=== PATIENT | male | born 1940 | race Caucasian/White ===

== ENCOUNTER 2016-12-22 14:19 | Observation (INO) | payer MEDICARE ==
[~2016-12-22] VITALS: Ht 172.7 cm; Wt 68.5 kg
[~2016-12-22 14:19] MED LIST: ALPR.25 PO; BUME1TAB28 PO; CALC667T PO; GABA600T PO; LIDOCAINE CREAM TOP; LOTE20TA PO; METO25TA3 PO; NITR0.4S SL; SIMV80TA PO; SPIRCAP INH
[2016-12-22 14:23] VITALS: BP 136/87; PULSE 86; RESP 16; TEMP 99.1; O2SAT 96
[2016-12-22] MEDS ORDERED: SODIUM CHLORIDE 0.9% FLUSH 5 ML FLUSH IV FLUSH PRN (15:00)
[2016-12-22 15:21] LABS: AUTOMATED NEUTROPHIL # 5.7 TH/MM3 (1.8-7.7); BASOPHIL # 0.2 TH/MM3 (0-0.2); BASOPHIL % 3.3 % (0.0-2.0); EOSINOPHIL # 0.1 TH/MM3 (0-0.4); EOSINOPHIL % 2.1 % (0.0-4.0); HEMATOCRIT 32.5 % (39.0-51.0); LYMPH % 6.3 % (9.0-44.0); LYMPHOCYTE # 0.4 TH/MM3 (1.0-4.8); MEAN CORPUSCULAR HEMOGLOBIN 28.9 PG (27.0-34.0); MEAN CORPUSCULAR HGB CONC 31.8 % (32.0-36.0); MONO % 8.9 % (0.0-8.0); NEUT % 79.4 % (16.0-70.0); PLATELET COUNT 169 TH/MM3 (150-450); RED BLOOD COUNT 3.57 MIL/MM3 (4.50-5.90)
[2016-12-22 15:32] LABS: CHLORIDE 107 MEQ/L (98-107); POTASSIUM 4.9 MEQ/L (3.5-5.1); SODIUM (NA) 142 MEQ/L (136-145)
[2016-12-22 15:36] LABS: ANION GAP 11 MEQ/L (5-15); APTT (PATIENT) 30.7 SEC (24.3-30.1); BICARBONATE 24.5 MEQ/L (21.0-32.0); BLOOD UREA NITROGEN 64 MG/DL (7-18); INTERNATIONAL NORMALIZED RATIO 1.2 RATIO; PROTHROMBIN TIME - PATIENT 12.8 SEC (9.8-11.6)
[2016-12-22] MEDS ORDERED: DIAZ10TA PO (15:36)
[2016-12-22] MEDS ORDERED: BUME2TAB PO ×2 (15:36)
[2016-12-22] MEDS ORDERED: TERA1CAP3 PO (15:36)
[2016-12-22] MEDS ORDERED: NEPHTAB3 PO (15:36)
[2016-12-22] MEDS ORDERED: PILO5TAB3 PO (15:36)
[2016-12-22] MEDS ORDERED: CLOP75TA PO (15:36)
[2016-12-22] MEDS ORDERED: AMLO5TAB2 PO (15:36)
[2016-12-22] MEDS ORDERED: OXYC1TAB63 PO (15:36)
[2016-12-22] MEDS ORDERED: ASPI81TA11 PO (15:36)
[2016-12-22 15:38] VITALS: O2SAT 96
[2016-12-22 15:39] LABS: ALT (GPT) 14 U/L (12-78); AST (GOT) 13 U/L (15-37); GLOMERULAR FILTRATION RATE 6 ML/MIN (>89)
[2016-12-22 15:40] LABS: HEMO FLAGS DIFF FINAL; TOTAL BILIRUBIN ADULT 0.5 MG/DL (0.2-1.0)
[2016-12-22 15:41] LABS: ALKALINE PHOSPHATASE 72 U/L (45-117)
--- NOTE | 2016-12-22 15:48 | PD ---
HPI Chief Complaint: General Weakness Time Seen by Provider: 14:43 Travel History International Travel<30 days: No Contact w/Intl Traveler<30days: No Traveled to known affect area: No History of Present Illness HPI This is a 76-year-old male who has a history of end-stage renal disease who presents to the emergency department with altered mental status. The patient has been increasingly confused over the past 3 months. His reports that he 's been saying strange things, he's been more paranoid and he is been falling frequently. The symptoms of been constant, worsening over the past 3 months but acutely worse in the past week. The patient has fallen multiple times. His reports that he's been cursing and screaming at her and she is concerned he is going to get physically aggressive. He's been yelling at the TV and saying that his mother's and it and he's been telling her to avoid the laundry because there are chemicals in it. She says he didn't get any of his medications today except for a half oxycodone. He didn't go to dialysis today because he refused it and he's been refusing all his other medications at home. She is having a very difficult time managing him at home. PFSH Past Medical History Hx Anticoagulant Therapy: Yes (PLAVIX AND BABY ASA) Anemia: Yes Arthritis: Yes Asthma: No Autoimmune Disease: No Anxiety: No Depression: No Heart Rhythm Problems: No Cancer: Yes (ca lung 2013) Cardiac Catheterization: Yes Cardiovascular Problems: Yes (AL, OPEN HEART SX. AND STENTS, HTN) High Cholesterol: Yes Chemotherapy: No Chest Pain: Yes Congestive Heart Failure: No COPD: No Cerebrovascular Accident: Yes (1992) Coronary Artery Disease: Yes Diabetes: No Dialysis: Yes (vas cath rt chest) Endocrine: No GERD: No Glaucoma: No Genitourinary: Yes Hepatitis: No Hiatal Hernia: Yes Hypertension: Yes Immune Disorder: No Inguinal Hernia: Yes Implanted Vascular Access Dvce: Yes Kidney Stones: No Musculoskeletal: Yes (ARTHRITIS) Neurologic: Yes (STROKE 1994, , neuropathy feet ) Psychiatric: Yes (ANXIETY) Reproductive: No Respiratory: Yes (POSS LUNG CA, copd) Migraines: No Radiation Therapy: No Renal Failure: Yes Seizures: No Sickle Cell Disease: No Sleep Apnea: No Thyroid Disease: No Ulcer: No Tetanus Vaccination: Unknown Influenza Vaccination: Yes Past Surgical History Abdominal Surgery: No AICD: No Arteriovenous Shunt: No Body Medical Devices: LEFT FORARM FISTULA Cardiac Surgery: Yes Coronary Artery Bypass Graft: Yes Ear Surgery: No Endocrine Surgery: No Eye Surgery: Yes (cataracts bilat) Genitourinary Surgery: Yes (BILAT INGUINAL HERNIA) Gynecologic Surgery: No Insulin Pump: No Joint Replacement: No Neurologic Surgery: No Oral Surgery: No Pacemaker: No Thoracic Surgery: Yes (CABG, STERNIUM REMOVED, patial lobectomy) Other Surgery: Yes Social History Alcohol Use: No Tobacco Use: No Substance Use: No Allergies-Medications (Allergen,Severity, Reaction): Coded Allergies: bee venom protein (honey bee) (Unverified Allergy, Intermediate, RASH, SWELLING, 12/22/16) *MDRO Multi-Drug Resistant Organism (Verified Allergy, Unknown, 12/22/16) MRSA 03/2012 Reported Meds & Prescriptions Reported Meds & Active Scripts Active Reported Aspirin EC (Aspirin) 81 Mg Tabdr 81 Mg PO DAILY Diazepam 10 Mg Tab 10 Mg PO HS Amlodipine (Amlodipine Besylate) 5 Mg Tab 5 Mg PO DAILY Terazosin (Terazosin HCl) 1 Mg Cap 1 Mg PO HS Bumetanide 2 Mg Tab 2 Mg PO HS Bumetanide 2 Mg Tab 4 Mg PO DAILY Nephro-Lavern (B-Complex W/ C & Folic Acid) 1 Tab 1 Tab PO DAILY Clopidogrel (Clopidogrel Bisulfate) 75 Mg Tab 75 Mg PO DAILY Pilocarpine 5 Mg Tab 5 Mg PO Q8HR Oxycodone-Acetaminophen 5-325 mg Tab 1-2 Tab PO Q4H PRN Gabapentin 600 Mg Tab 600 Mg PO BID Simvastatin 80 Mg Tab 80 Mg PO DAILY Review of Systems ROS Limitations: Poor Historian Physical Exam Narrative GENERAL: Somnolent but awakens to answer questions. SKIN: Dry with skin tenting. HEAD: Atraumatic. Normocephalic. EYES: Pupils equal and round. No injection or drainage. ENT: Dry mucous membranes. NECK: Trachea midline. CARDIOVASCULAR: Regular rate and rhythm. No murmur appreciated. RESPIRATORY: Clear to auscultation. Breath sounds equal bilaterally. GASTROINTESTINAL: Abdomen soft, non-tender, nondistended. MUSCULOSKELETAL: No obvious deformities. NEUROLOGICAL: Oriented to person place and time but definitely confused, making inappropriate comments and answering some questions inappropriately. No obvious cranial nerve deficits. No dysarthria or aphasia. No upper or lower extremity drift. Left upper extremity ataxia. Intermittent resting tremor of the bilateral upper extremities. PSYCHIATRIC: Poor insight and judgment. Data Data Last Documented VS Vital Signs Date Time Temp Pulse Resp B/P (MAP) Pulse Ox O2 Delivery O2 Flow Rate FiO2 12/22/16 15:38 96 Room Air 12/22/16 14:23 99.1 86 16 136/87 (103) Orders Orders Electrocardiogram (12/22/16 14:57) Ammonia (12/22/16 14:57) Complete Blood Count With Diff (12/22/16 14:57) Comprehensive Metabolic Panel (12/22/16 14:57) Prothrombin Time / Inr (Pt) (12/22/16 14:57) Act Partial Throm Time (Ptt) (12/22/16 14:57) Thyroid Stimulating Hormone (12/22/16 14:57) Ct Brain W/O Iv Contrast(Rout) (12/22/16 14:57) Blood Glucose (12/22/16 14:57) Ecg Monitoring (12/22/16 14:57) Iv Access Insert/Monitor (12/22/16 14:57) Oximetry (12/22/16 14:57) Sodium Chloride 0.9% Flush (Ns Flush) (12/22/16 15:00) Drug Screen, Random Urine (12/22/16 14:57) Alcohol (Ethanol) (12/22/16 14:57) Labs Laboratory Tests Test 12/22/16 15:12 White Blood Count 7.0 TH/MM3 Red Blood Count 3.57 MIL/MM3 Hemoglobin 10.3 GM/DL Hematocrit 32.5 % Mean Corpuscular Volume 91.0 FL Mean Corpuscular Hemoglobin 28.9 PG Mean Corpuscular Hemoglobin Concent 31.8 % Red Cell Distribution Width 19.0 % Platelet Count 169 TH/MM3 Mean Platelet Volume 8.8 FL Neutrophils (%) (Auto) 79.4 % Lymphocytes (%) (Auto) 6.3 % Monocytes (%) (Auto) 8.9 % Eosinophils (%) (Auto) 2.1 % Basophils (%) (Auto) 3.3 % Neutrophils # (Auto) 5.7 TH/MM3 Lymphocytes # (Auto) 0.4 TH/MM3 Monocytes # (Auto) 0.6 TH/MM3 Eosinophils # (Auto) 0.1 TH/MM3 Basophils # (Auto) 0.2 TH/MM3 CBC Comment DIFF FINAL Differential Comment Prothrombin Time 12.8 SEC Prothromb Time International Ratio 1.2 RATIO Activated Partial Thromboplast Time 30.7 SEC Blood Urea Nitrogen 64 MG/DL Creatinine 8.20 MG/DL Random Glucose 83 MG/DL Total Protein 7.0 GM/DL Albumin 3.2 GM/DL Calcium Level 9.6 MG/DL Alkaline Phosphatase 72 U/L Aspartate Amino Transf (AST/SGOT) 13 U/L Alanine Aminotransferase (ALT/SGPT) 14 U/L Total Bilirubin 0.5 MG/DL Sodium Level 142 MEQ/L Potassium Level 4.9 MEQ/L Chloride Level 107 MEQ/L Carbon Dioxide Level 24.5 MEQ/L Anion Gap 11 MEQ/L Estimat Glomerular Filtration Rate 6 ML/MIN Ammonia 16 MCMOL/L Thyroid Stimulating Hormone 3rd Gen 0.675 uIU/ML Ethyl Alcohol Level LESS THAN 3 MG/DL MDM Medical Decision Making Medical Screen Exam Complete: Yes Emergency Medical Condition: Yes Interpretation(s) afebrile, no tachycardia, normotensive mild anemia potassium is normal Creatinine is 8.2 BUN is 64 Ammonia 16 Alcohol is less than 3 Last [address] 12/22/16 0727 Signed Impressions: Service Date/Time: Thursday, December 22, 2016 15:33 - CONCLUSION: No acute disease. Ashish Davis Jr., MD Differential Diagnosis Uremia, hepatic encephalopathy, polypharmacy, stroke, dementia Narrative Course This is a 76-year-old male who has a history of end-stage renal disease who presents to the emergency department with confusion that's been worsening over the past several months but is acutely worse in the past week. He's fallen multiple times. He's been combative with his and he is paranoid. On exam patient appears somewhat somnolent and is definitely confused. He is ataxic in the left upper extremity and has a tremor affecting both upper extremities. Evidently he had an MRI as an outpatient which was reassuring. Labs are obtained which were unremarkable with the exception of a BUN of 64. CT is reassuring. I think patient requires observation for neurology consult. I would also discontinue his Valium, oxycodone and pilocarpine as this may be contributing to his mental status. He doesn't seem safe to go home and is quite confused on exam. Given his somnolence on exam I suspect this is more delirium than dementia. Physician Communication Physician Communication Delirium Admitting Information Admitting Physician Requests: Observation Wanda Galaviz MD Dec 22, 2016 15:48
--- NOTE | 2016-12-22 15:52 | RADRPT ---
EXAM DATE/TIME: 12/22/2016 15:33 [facility] COMPARISON: No previous studies available for comparison. INDICATIONS : Lethargic. RADIATION DOSE: 55.99 CTDIvol (mGy) MEDICAL HISTORY : Cerebrovascular disease. Cardiovascular disease Carcinoma, lung.Hypertension. SURGICAL HISTORY : Coronary artery stent. ENCOUNTER: Initial ACUITY: 1 day PAIN SCALE: 0/10 LOCATION: cranial TECHNIQUE: Multiple contiguous axial images were obtained of the head. Using automated exposure control and adj ustment of the mA and/or kV according to patient size, radiation dose was kept as low as reasonably a chievable to obtain optimal diagnostic quality images. DICOM format image data is available electro nically for review and comparison. FINDINGS: CEREBRUM: Atrophy. The ventricles are normal for age. No evidence of midline shift, mass lesion, hemorrhage or acute infarction. No extra-axial fluid collections are seen. POSTERIOR FOSSA: The cerebellum and brainstem are intact. The 4th ventricle is midline. The cerebellopontine angle i s unremarkable. EXTRACRANIAL: The visualized portion of the orbits is intact. SKULL: The calvaria is intact. No evidence of skull fracture. CONCLUSION: No acute disease. Ashish Davis Jr., MD on December 22, 2016 at 15:49 Board Certified Radiologist. This report was verified electronically.
[2016-12-22 16:04] LABS: ALCOHOL LESS THAN 3 MG/DL (0-5)
[2016-12-22] MEDS ORDERED: NALOXONE HCL 0.4 MG/ML AMP IV PUSH PRN (17:15)
[2016-12-22] MEDS ORDERED: SODIUM CHLORIDE 0.9% FLUSH 10 ML FLUSH IV FLUSH PRN (17:15)
[2016-12-22] MEDS ORDERED: RESP: ALBUTEROL 2.5 MG/IPRATROPIUM 0.5 MG NEB (PRN) NEB (17:30)
--- NOTE | 2016-12-22 17:31 | HHI.HP ---
[facility] Non-Staff Admission Diagnosis delirium Diagnoses: Chief Complaint: Altered mental status Travel History International Travel<30 Days: No Contact w/Intl Traveler <30 Da: No Traveled to Known Affected Are: No History of Present Illness Patient is a 76-year-old gentleman with a history of end-stage renal disease and coronary artery disease who has had 3 months of worsening confusion and this has been worse over the last 2 weeks per his spouse who accompanies him to the emergency room. Over the last 24 hours patient has become angry and agitated with increased hallucinations. The patient did come to the emergency room for further evaluation with his . He isn't paranoid and falling. He has been no fever or chills and no nausea. Patient does report that he has increasing abdominal pain in the right upper quadrant as well as radiating to the back. The pain is moderate to severe. They spouse says that he did have cardiac stents done in June around the same time he was diagnosed with gallstone which were in need of a cholecystectomy however because he was placed on the blood thinner this was delayed. Patient now reports difficulty eating and pain worse with eating in the right upper quadrant. LFTs are unremarkable. CT of the head is unremarkable. On my review EKG does show sinus rhythm without ischemic changes and a chest x-ray on my review shows no acute cardio pulmonary pathology Review of Systems ROS Limitations: Altered Mental Status (history per spouse and ER MD) Constitutional: DENIES: Diaphoretic episodes, Fatigue, Fever, Weight gain, Weight loss, Chills, Dizziness, Change in appetite, Night Sweats Endocrine: DENIES: Heat/cold intolerance, Polydipsia, Polyuria, Polyphagia Eyes: DENIES: Blurred vision, Diplopia, Eye inflammation, Eye pain, Vision loss , Photosensitivity, Double Vision Ears, nose, mouth, throat: DENIES: Tinnitus, Hearing loss, Vertigo, Nasal discharge, Oral lesions, Throat pain, Hoarseness, Ear Pain, Running Nose, Epistaxis, Sinus Pain, Toothache, Odynophagia Respiratory: DENIES: Apneas, Cough, Snoring, Wheezing, Hemoptysis, Sputum production, Shortness of breath Cardiovascular: DENIES: Chest pain, Palpitations, Syncope, Dyspnea on Exertion , PND, Lower Extremity Edema, Orthopnea, Claudication Gastrointestinal: DENIES: Abdominal pain, Black stools, Bloody stools, Constipation, Diarrhea, Nausea, Vomiting, Difficulty Swallowing, Anorexia Genitourinary: DENIES: Sexual dysfunction, Urinary frequency, Urinary incontinence, Urgency, Hematuria, Dysuria, Nocturia, Penile Discharge, Testicular Pain, Testicular Swelling Musculoskeletal: DENIES: Joint pain, Muscle aches, Stiffness, Joint Swelling, Back pain, Neck pain Integumentary: DENIES: Abnormal pigmentation, Nail changes, Pruritus, Rash Immunologic/allergic: DENIES: Eczema, Urticaria Neurologic: DENIES: Abnormal gait, Headache, Localized weakness, Paresthesias, Seizures, Speech Problems, Tremor, Poor Balance Psychiatric: COMPLAINS OF: Confusion, Mood changes, Agitation, DENIES: Anxiety , Depression, Hallucinations, Suicidal Ideation, Homicidal Ideation, Delusions Except as stated in HPI: all other systems reviewed are Neg Past Family Social History Past Medical History Coronary artery disease COPD End-stage renal disease Past Surgical History Fistula AV fistula left arm partial lobectomy cardiac bypass Cataracts Bilateral inguinal hernia repair COPD Reported Medications Reviewed in the EMR, nothing new Allergies: Coded Allergies: bee venom protein (honey bee) (Unverified Allergy, Intermediate, RASH, SWELLING, 12/22/16) *MDRO Multi-Drug Resistant Organism (Verified Allergy, Unknown, 12/22/16) MRSA 03/2012 Active Ordered Medications Reviewed in the EMR Family History Patient unable to tell due to confusion Social History No tobacco or alcohol dependency Physical Exam Vital Signs Vital Signs Date Time Temp Pulse Resp B/P (MAP) Pulse Ox O2 Delivery O2 Flow Rate FiO2 12/22/16 15:38 96 Room Air 12/22/16 15:25 Room Air 12/22/16 14:23 99.1 86 16 136/87 (103) 96 Physical Exam GENERAL: This is a ill-appearing well-developed gentleman who is confused SKIN: No rashes, ecchymoses or lesions. Cool and dry. HEAD: Atraumatic. Normocephalic. No temporal or scalp tenderness. EYES: Pupils equal round and reactive. Extraocular motions intact. No scleral icterus. No injection or drainage. ENT: Nose without bleeding, purulent drainage or septal hematoma. Throat without erythema, tonsillar hypertrophy or exudate. Uvula midline. Airway patent. NECK: Trachea midline. No JVD or lymphadenopathy. Supple, nontender, no meningeal signs. CARDIOVASCULAR: Regular rate and rhythm without gallops or rubs, systolic murmur RESPIRATORY: Clear to auscultation. Breath sounds equal bilaterally. No wheezes , rales, or rhonchi. GASTROINTESTINAL: Abdomen soft, non-tender, nondistended. No hepato-splenomegaly , or palpable masses. No guarding. MUSCULOSKELETAL: Left upper extremity fistula, Extremities without clubbing, cyanosis, or edema. No joint tenderness, effusion, or edema noted. No calf tenderness. Negative Homans sign bilaterally. NEUROLOGICAL: Awake and alert. Cranial nerves II through XII intact. Motor and sensory grossly within normal limits. Five out of 5 muscle strength in all muscle groups. Nonsensical speech Laboratory Laboratory Tests Test 12/22/16 15:12 White Blood Count 7.0 Red Blood Count 3.57 Hemoglobin 10.3 Hematocrit 32.5 Mean Corpuscular Volume 91.0 Mean Corpuscular Hemoglobin 28.9 Mean Corpuscular Hemoglobin Concent 31.8 Red Cell Distribution Width 19.0 Platelet Count 169 Mean Platelet Volume 8.8 Neutrophils (%) (Auto) 79.4 Lymphocytes (%) (Auto) 6.3 Monocytes (%) (Auto) 8.9 Eosinophils (%) (Auto) 2.1 Basophils (%) (Auto) 3.3 Neutrophils # (Auto) 5.7 Lymphocytes # (Auto) 0.4 Monocytes # (Auto) 0.6 Eosinophils # (Auto) 0.1 Basophils # (Auto) 0.2 CBC Comment DIFF FINAL Differential Comment Prothrombin Time 12.8 Prothromb Time International Ratio 1.2 Activated Partial Thromboplast Time 30.7 Blood Urea Nitrogen 64 Creatinine 8.20 Random Glucose 83 Total Protein 7.0 Albumin 3.2 Calcium Level 9.6 Alkaline Phosphatase 72 Aspartate Amino Transf (AST/SGOT) 13 Alanine Aminotransferase (ALT/SGPT) 14 Total Bilirubin 0.5 Sodium Level 142 Potassium Level 4.9 Chloride Level 107 Carbon Dioxide Level 24.5 Anion Gap 11 Estimat Glomerular Filtration Rate 6 Ammonia 16 Thyroid Stimulating Hormone 3rd Gen 0.675 Ethyl Alcohol Level LESS THAN 3 Result Diagram: 12/22/16 1512 12/22/16 1512 Imaging Last Impressions Head CT 12/22/16 9741 Signed Impressions: Service Date/Time: Thursday, December 22, 2016 15:33 - CONCLUSION: No acute disease. MD Ro Sauceda Jr. VTE Risk Assessment Caprini VTE Risk Assessment: Mod/High Risk (score >= 2) Caprini Risk Assessment Model Point Value = 1 Point Value = 2 Point Value = 3 Point Value = 5 Age 41-60 Minor surgery BMI > 25 kg/m2 Swollen legs Varicose veins or History of unexplained or recurrent spontaneous Oral contraceptives or hormone replacement Sepsis (< 1 month) Serious lung disease, including pneumonia (< 1 month) Abnormal pulmonary function Acute myocardial infarction Congestive heart failure (< 1 month) History of inflammatory bowel disease Medical patient at bed rest Age 61-74 Arthroscopic surgery Major open surgery (> 45 min) Laparoscopic surgery (> 45 min) Malignancy Confined to bed (> 72 hours) Immobilizing plaster cast Central venous access Age >= 75 History of VTE Family history of VTE Factor V Leiden Prothrombin [id number] Lupus anticoagulant Anticardiolipin antibodies Elevated serum homocysteine Heparin-induced thrombocytopenia Other congenital or acquired thrombophilia Stroke (< 1 month) Elective arthroplasty Hip, pelvis, or leg fracture Acute spinal cord injury (< 1 month) Prophylaxis Regimen Total Risk Factor Score Risk Level Prophylaxis Regimen 0-1 Low Early ambulation 2 Moderate Order ONE of the following: *Sequential Compression Device (SCD) *Heparin 5000 units SQ BID 3-4 Higher Order ONE of the following medications: *Heparin 5000 units SQ TID *Enoxaparin/Lovenox 40 mg SQ daily (WT < 150 kg, CrCl > 30 mL/min) *Enoxaparin/Lovenox 30 mg SQ daily (WT < 150 kg, CrCl > 10-29 mL/min) *Enoxaparin/Lovenox 30 mg SQ BID (WT < 150 kg, CrCl > 30 mL/min) AND/OR *Sequential Compression Device (SCD) 5 or more Highest Order ONE of the following medications: *Heparin 5000 units SQ TID (Preferred with Epidurals) *Enoxaparin/Lovenox 40 mg SQ daily (WT < 150 kg, CrCl > 30 mL/min) *Enoxaparin/Lovenox 30 mg SQ daily (WT < 150 kg, CrCl > 10-29 mL/min) *Enoxaparin/Lovenox 30 mg SQ BID (WT < 150 kg, CrCl > 30 mL/min) AND *Sequential Compression Device (SCD) Assessment and Plan Problem List: (1) Metabolic encephalopathy ICD Code: G93.41 - Metabolic encephalopathy Plan: etiology unclear, rule out sepsis, drug reaction (diazepam, oxycodone, gabapentin held) Follow-up blood cultures, follow-up ultrasound gallbladder (2) ESRD (end stage renal disease) ICD Code: N18.6 - End stage renal disease Plan: Continue hemodialysis Thursday/Thursday/Thursday Nephrology consultation, [facility] nephrovi Renal diet (3) CAD (coronary artery disease) ICD Code: I25.10 - Atherosclerotic heart disease of [place] coronary artery without angina pectoris Plan: Patient on Plavix, aspirin, continue to follow on telemetry (4) COPD (chronic obstructive pulmonary disease) ICD Code: J44.9 - Chronic obstructive pulmonary disease, unspecified Plan: without evidence of acute exacerbation, continue bronchodilators as needed Code Status full code Discussed Condition With Patient, spouse, ER MD Zhu,Juliet Gonzales MD Dec 22, 2016 17:31
[2016-12-22 17:38] VITALS: BP 175/68; PULSE 82; RESP 18; O2SAT 94
[2016-12-22] MEDS: HEPARIN SODIUM - SQ 10,000 UNITS/ML VIAL SQ SCH (18:35)
[2016-12-22 18:55] VITALS: BP 154/84; PULSE 84; RESP 18; O2SAT 92
--- NOTE | 2016-12-22 19:11 | RADRPT ---
EXAM DATE/TIME: 12/22/2016 18:07 [facility] COMPARISON: No previous studies available for comparison. INDICATIONS : Right upper quadrant pain. MEDICAL HISTORY : Stroke. Myocardial infarction. Hypercholesterolemia. Bilateral cataract surgery. Hearing aids. Confus ion. Dizziness. Cornary artery disease. COPD. Hypertension. Anticoagulant therapy. Lung cancer. Renal failure. Inguinal hernia. Arthritis. Anemia. Dialysis. Anxiety. SURGICAL HISTORY : CABG. Cardiac stents. Cardiac catheterization. Hernia repair. Sternium removed. Partial lobectomy . ENCOUNTER: Initial ACUITY: 1 day PAIN SCORE: 6/10 LOCATION: Right upper quadrant MEASUREMENTS: LIVER: 18.2 cm length COMMON DUCT: 7 mm RIGHT KIDNEY: 8.8 x 3.7 x 3.7 cm FINDINGS: Small volume of free peritoneal fluid LIVER: Normal echotexture without focal lesion or ductal dilatation. COMMON DUCT: No intraluminal mass or stone visualized. GALLBLADDER: Mild diffuse wall thickening. Stone in the fundus region. PANCREAS: The visualized portions are within normal limits. RIGHT KIDNEY: Cortical thinning and increased cortical echogenicity consistent with chronic medical renal disease. Multiple cysts. No hydronephrosis. CONCLUSION: Gallstone with mild diffuse gallbladder wall thickening. Chronic kidney disease Caleb Diego MD on December 22, 2016 at 19:07 Board Certified Radiologist. This report was verified electronically.
[2016-12-22 20:00] VITALS: BP 186/75; PULSE 68; RESP 18; TEMP 99.4; O2SAT 92
[2016-12-22] MEDS: SODIUM CHLORIDE 0.9% FLUSH 10 ML FLUSH IV FLUSH SCH (21:15)
[2016-12-22] MEDS: TERAZOSIN HCL 1 MG CAP PO SCH (21:15)
[2016-12-22] MEDS: PIPERACIL-TAZO 2.25 GM PREMIX 50 ML IV SCH (23:55)
[2016-12-23] VITALS: BP 163/81; PULSE 85; RESP 18; TEMP 97.9; O2SAT 91
[2016-12-23] MEDS: ACETAMINOPHEN 325 MG TAB PO PRN ×2 (02:07→13:44)
[2016-12-23] MEDS: PIPERACIL-TAZO 2.25 GM PREMIX 50 ML IV SCH ×3 (04:45→20:44)
[2016-12-23] MEDS: HEPARIN SODIUM - SQ 10,000 UNITS/ML VIAL SQ SCH ×2 (06:07→18:32)
[2016-12-23 06:37] LABS: AUTOMATED NEUTROPHIL # 4.2 TH/MM3 (1.8-7.7); BASOPHIL % 0.2 % (0.0-2.0); EOSINOPHIL # 0.2 TH/MM3 (0-0.4); EOSINOPHIL % 3.6 % (0.0-4.0); HEMATOCRIT 28.4 % (39.0-51.0); HEMO FLAGS DIFF FINAL; LYMPH % 8.4 % (9.0-44.0); LYMPHOCYTE # 0.5 TH/MM3 (1.0-4.8); MEAN CELL VOLUME 91.8 FL (80.0-100.0); MEAN CORPUSCULAR HEMOGLOBIN 29.1 PG (27.0-34.0); MEAN CORPUSCULAR HGB CONC 31.7 % (32.0-36.0); MONO % 11.4 % (0.0-8.0); NEUT % 76.4 % (16.0-70.0); PLATELET COUNT 149 TH/MM3 (150-450); RED BLOOD COUNT 3.09 MIL/MM3 (4.50-5.90); WHITE BLOOD COUNT 5.5 TH/MM3 (4.0-11.0)
[2016-12-23 06:47] LABS: POTASSIUM 4.6 MEQ/L (3.5-5.1)
[2016-12-23 08:00] VITALS: BP 177/81; PULSE 71; RESP 17; TEMP 98.1; O2SAT 95
[2016-12-23] MEDS: amLODIPine BESYLATE 5 MG TAB PO SCH (08:41)
[2016-12-23] MEDS: PRAVASTATIN SOD 40 MG TAB PO SCH (08:41)
[2016-12-23] MEDS: SODIUM CHLORIDE 0.9% FLUSH 10 ML FLUSH IV FLUSH SCH ×2 (08:42→20:44)
[2016-12-23] MEDS ORDERED: ASPIRIN EC 81 MG TABEC PO SCH (09:00)
[2016-12-23] MEDS ORDERED: CLOPIDOGREL 75 MG TAB PO SCH (09:00)
[2016-12-23] MEDS ORDERED: SODIUM CHLOR 0.9% 1000 ML INJ 1,000 ML OTHER PRN ×2 (09:56)
[2016-12-23] MEDS ORDERED: SODIUM CHLOR 0.9% 1000 ML INJ 1,000 ML IV PRN (09:56)
[2016-12-23] MEDS ORDERED: MANNITOL 12.5 GM/50 ML VIAL IV PRN (10:00)
[2016-12-23] MEDS ORDERED: HEPARIN SODIUM - IV 10,000 UNITS/10 ML VIAL PRN (10:00)
[2016-12-23] MEDS ORDERED: HEPARIN SODIUM - IV 10,000 UNITS/10 ML VIAL IV FLUSH PRN (10:00)
[2016-12-23] MEDS ORDERED: ALBUMIN 25% INJ 100 ML IV PRN (10:00)
[2016-12-23] MEDS ORDERED: NITROGLYCERIN 0.4 MG SL 25 TABS/BTL SL PRN (10:00)
[2016-12-23] MEDS ORDERED: ONDANSETRON HCL 4 MG/2 ML VIAL IV PUSH PRN (10:00)
[2016-12-23] MEDS ORDERED: diphenhydrAMINE HCL 25 MG CAP PO PRN (10:00)
[2016-12-23] MEDS ORDERED: cloNIDine HCL 0.1 MG TAB PO PRN (10:00)
[2016-12-23] MEDS ORDERED: ACETAMINOPHEN 325 MG TAB PO PRN (10:00)
[2016-12-23] MEDS ORDERED: SODIUM CHLORIDE 0.9% FLUSH 10 ML FLUSH IV FLUSH PRN (10:00)
[2016-12-23] MEDS ORDERED: GENTAMICIN SULFATE (DIALYSIS USE ONLY) 20 MG/2 ML VIAL OTHER PRN (10:00)
[2016-12-23] MEDS ORDERED: GELATIN 12 MM/7 MM FOAM TOP PRN (10:00)
--- NOTE | 2016-12-23 10:10 | MB ---
cc: MARIA C KYLE M.D. DATE OF CONSULTATION 12/23/2016 REASON FOR CONSULTATION Gallbladder disease HISTORY This is a 76-year-old gentleman who has end-stage renal disease getting dialysis. Apparently over the last three months, he has been having worsening confusion with falling and paranoia and psychiatric derangements. He was brought to the emergency room apparently by his because he was angry, agitated and was hallucinating. He has a multitude of medical issues including pulmonary, cardiac and renal disease. He now has a psychiatric problem. He was apparently seen at another hospital where they put cardiac stents in and told him at some time he needed to have his gallbladder out, but he was placed on blood thinners and this was delayed. The patient is in the room presently. He was sleeping, when I wake him, he is able to answer some simple questions, but then falls asleep and then he wakes up and he just starts reciting some numbers and talking generalized jibberish. The nursing staff came in and said he has been speaking this gibberish as well. Apparently he thought he did not sleep all night, but the nurses said he had been sleeping all night. REVIEW OF SYSTEMS His review of systems is really unable to be obtained and I have reviewed the system that was reviewed by the ER doctor that talked to the spouse. The review of systems documented in their documentation and there is no way at this time for me to confirm the accuracy of this because the patient is unable to give me any information and there is no family member here. PAST MEDICAL HISTORY AND SOCIAL HISTORY In the computer he has: 1. Severe coronary artery disease 2. COPD 3. End-stage renal disease getting dialysis which he refused to get because he was agitated. 4. He has an AV fistula in the left arm. 5. He has some severe lung surgery. 6. He had a cardiac bypass. 7. He has had bilateral inguinal hernias. ALLERGIES HE HAS HAD MULTI-DRUG RESISTANT ORGANISM INFECTIONS, HE IS ALLERGIC TO [place] APPARENTLY. MEDICATIONS As an outpatient include: 1. Aspirin 2. Vitamin B 3. Vivatin twice a day 5. Diltiazem 6. Gabapentin 7. Oxycodone 8. Pilocarpine 9. Simvastatin 10. Trazodone PHYSICAL EXAM On examination, he was sleeping. He opens his eyes but I have to awaken him frequently. He does not appear to have any focal deficits. He appears to be sleepy or sedated. NECK: Supple. CHEST: Clear. He has a surgical scar, the median sternotomy. HEART: Regular rate. ABDOMEN: Thin and soft without rebound or guarding. He has some mild tenderness with very deep palpation in the right upper quadrant. Surgical scars. EXTREMITIES: He has his dialysis shunt in the left upper extremity. NEUROLOGIC: Sedated with talking incoherent sentences at times. He is able to tell me something about his gallbladder, but it is difficult to understand what he is saying. IMAGING STUDIES He had a CT of his head which was read as normal, no acute disease. He had an ultrasound showing gallstones with some thickening and chronic kidney disease. LABORATORY DATA He had a white count of 5, H&H 9 and 28. Chemistry shows a creatinine of 8.6, BUN is 74. There are no LFTs. The LFTs on the , yesterday, were all normal. TSH was 0.6. Troponin level was slightly elevated. Toxicology was positive for benzo's. ASSESSMENT This is a 76-year-old gentleman with a multitude of medical issues including cardiac, pulmonary and end-stage renal disease on dialysis with gallstones with a thickened gallbladder wall. He appears to be either sleepy or sedated or this is his normal state aligned. PLAN While he is medically stabilized, we can certainly proceed with cholecystectomy. Of course, we need to talk to some family members to get consent as he is unable to give it at this time. We will be following along with the health care team. Of course, he will need to be off his blood thinners which I will hold in anticipation of hopefully performing a cholecystectomy by the end of the week and depending on his medical condition. MD CHIRAG Harkins/VALENC[place] /7:51 AM /9:44 AM COLIN
[2016-12-23 12:00] VITALS: BP 160/78; PULSE 66; RESP 18; TEMP 97.9; O2SAT 94
--- NOTE | 2016-12-23 12:44 | HHI.PR ---
Subjective Remarks The patient was resting comfortably in bed. He said his right lower back was hurting. He wanted to know why that was. He did not indicate an appetite. He said he talked with the surgeon. Discussed with nursing. Objective Vitals Vital Signs Date Time Temp Pulse Resp B/P (MAP) Pulse Ox O2 Delivery O2 Flow Rate FiO2 12/23/16 08:00 98.1 71 17 177/81 (113) 95 12/23/16 00:00 97.9 85 18 163/81 (108) 91 12/22/16 20:00 99.4 68 18 186/75 (112) 92 12/22/16 20:00 99.4 68 18 186/75 (112) 92 12/22/16 18:55 84 18 154/84 (107) 92 12/22/16 18:43 12/22/16 17:38 82 18 175/68 (103) 94 Room Air 12/22/16 15:38 96 Room Air 12/22/16 15:25 Room Air 12/22/16 14:23 99.1 86 16 136/87 (103) 96 I/O 12/22/16 12/22/16 12/22/16 12/23/16 12/23/16 12/23/16 07:00 15:00 23:00 07:00 15:00 23:00 Intake Total 50 ml Balance 50 ml Intake IV Total 50 ml # Voids 1 2 # Bowel Movements 0 Result Diagram: 12/23/16 0530 12/23/16 0530 Imaging Last Impressions Head CT 12/22/16 1457 Signed Impressions: Service Date/Time: Thursday, December 22, 2016 15:33 - CONCLUSION: No acute disease. Ashish Davis Jr., MD Gall Bladder Ultrasound 12/22/16 0000 Signed Impressions: Service Date/Time: Thursday, December 22, 2016 18:07 - CONCLUSION: Gallstone with mild diffuse gallbladder wall thickening. Chronic kidney disease Caleb Diego MD Objective Remarks GENERAL: This is an ill-appearing, well-developed gentleman in [facility]. SKIN: No rashes, ecchymoses or lesions. Cool and dry. HEAD: Atraumatic. Normocephalic. No temporal or scalp tenderness. EYES: Pupils equal round and reactive. Extraocular motions intact. No scleral icterus. No injection or drainage. ENT: Nose without bleeding, purulent drainage or septal hematoma. Throat without erythema, tonsillar hypertrophy or exudate. Uvula midline. Airway patent. NECK: Trachea midline. No JVD or lymphadenopathy. Supple, nontender, no meningeal signs. CARDIOVASCULAR: Regular rate and rhythm without gallops or rubs, systolic murmur RESPIRATORY: Clear to auscultation. Breath sounds equal bilaterally. No wheezes , rales, or rhonchi. GASTROINTESTINAL: Abdomen soft, non-tender, nondistended. No hepato-splenomegaly , or palpable masses. No guarding. MUSCULOSKELETAL: Left upper extremity fistula, extremities without clubbing, cyanosis, or edema. Right hip tender to palpation. NEUROLOGICAL: Awake and alert. Cranial nerves II through XII intact. Motor and sensory grossly within normal limits. Five out of 5 muscle strength in all muscle groups. Nonsensical speech Medications and IVs Current Medications Medications (Trade) Dose Ordered Sig/Ankush Route Start Time Stop Time Status Last Admin (NS Flush) 2 ml UNSCH PRN IV FLUSH 12/22/16 17:15 (NS Flush) 2 ml BID IV FLUSH 12/22/16 21:00 12/23/16 08:42 (Tylenol) 650 mg Q4H PRN PO 12/22/16 17:15 12/23/16 02:07 (Heparin Inj) 5,000 units Q12H SQ 12/22/16 18:00 12/23/16 06:07 (Narcan Inj) 0.4 mg UNSCH PRN IV PUSH 12/22/16 17:15 (Norvasc) 5 mg DAILY PO 12/23/16 09:00 12/23/16 08:41 (Ecotrin Ec) 81 mg DAILY PO 12/23/16 09:00 Future Hold (Plavix) 75 mg DAILY PO 12/23/16 09:00 Future Hold (Hytrin) 1 mg HS PO 12/22/16 21:00 12/22/16 21:15 (Pravachol) 80 mg DAILY PO 12/23/16 09:00 12/23/16 08:41 (Duoneb Neb) 1 ampule Q6HR NEB PRN NEB 12/22/16 17:30 Piperacillin Sod/ Tazobactam Sod 50 ml @ 100 mls/hr Q6H IV 12/22/16 23:00 12/23/16 11:50 Sodium Chloride 1,000 ml @ 0 mls/hr Q0M PRN OTHER 12/23/16 09:56 (Heparin Inj) 8,000 units UNSCH PRN IV FLUSH 12/23/16 10:00 Sodium Chloride 1,000 ml @ 200 mls/hr Q5H PRN IV 12/23/16 09:56 Sodium Chloride 1,000 ml @ 0 mls/hr Q0M PRN OTHER 12/23/16 09:56 (Mannitol Inj) 12.5 gm UNSCH PRN IV 12/23/16 10:00 Albumin Human 100 ml @ 60 mls/hr UNSCH PRN IV 12/23/16 10:00 (NS Flush) 5 ml UNSCH PRN IV FLUSH 12/23/16 10:00 (Heparin Inj) UNSCH PRN .XX 12/23/16 10:00 (Gentamicin (Dialysis) Inj) 20 mg UNSCH PRN OTHER 12/23/16 10:00 (Zofran Inj) 4 mg UNSCH PRN IV PUSH 12/23/16 10:00 (Tylenol) 650 mg UNSCH PRN PO 12/23/16 10:00 (Benadryl) 25 mg UNSCH PRN PO 12/23/16 10:00 (Nitrostat Sl) 0.4 mg UNSCH PRN SL 12/23/16 10:00 (Catapres) 0.1 mg UNSCH PRN PO 12/23/16 10:00 (Epogen Inj) 10,000 units UNSCH PRN IV PUSH 12/23/16 10:00 (Gelfoam 12 Mm/7 Mm Top) 1 foam UNSCH PRN TOP 12/23/16 10:00 A/P Problem List: (1) Metabolic encephalopathy ICD Code: G93.41 - Metabolic encephalopathy (2) ESRD (end stage renal disease) ICD Code: N18.6 - End stage renal disease (3) CAD (coronary artery disease) ICD Code: I25.10 - Atherosclerotic heart disease of [place] coronary artery without angina pectoris (4) COPD (chronic obstructive pulmonary disease) ICD Code: J44.9 - Chronic obstructive pulmonary disease, unspecified Assessment and Plan Cholecystitis GB US with wall thickening. Surgery consult appreciated. - anticipate cholecystectomy 12/24. - pain control and antiemetics as needed. - continue Zosyn. Metabolic encephalopathy Possibly s/t above or drug reaction. - hold diazepam, oxycodone and gabapentin. - treatment as above. - neuro checks. End stage renal disease On dialysis. - Continue hemodialysis Thursday/Thursday/Thursday - Nephrology consultation appreciated. - supplements as needed. CAD (coronary artery disease) Atherosclerotic heart disease of [place] coronary artery without angina pectoris. Trops elevated at 0.07, may be s/t renal insufficiency. - Patient on Plavix, aspirin. On hold for surgery. - continue to follow on telemetry. - trend trops. Chronic obstructive pulmonary disease Without evidence of acute exacerbation. - continue bronchodilators as needed. Right hip pain Tender on exam. - x ray pending. PPx: On hold for surgery Vinny Pedersen DO Dec 23, 2016 12:44
--- NOTE | 2016-12-23 14:21 | RADRPT ---
EXAM DATE/TIME: 12/23/2016 13:49 [facility] COMPARISON: No previous studies available for comparison. INDICATIONS : Right hip pain MEDICAL HISTORY : Stroke. Myocardial infarction. Hypercholesterolemia. Bilateral cataract surgery. Hearing aids. Confus ion. Dizziness. Cornary artery disease. COPD. Hypertension. Anticoagulant therapy.Lung cancer. Renal failure. Inguinal hernia. Arthritis. Anemia. Dialysis. Anxiety. SURGICAL HISTORY : CABG. Cardiac stents. Cardiac catheterization. Hernia repair. Sternium removed. Partial lobectomy. ENCOUNTER: Subsequent ACUITY: 2 days PAIN SCORE: 5/10 LOCATION: Right hip/pelvis FINDINGS: Examination of the right hip was performed with AP pelvis. The primary and secondary trabecular braydon niesha of the femoral neck is intact. The hip joint is of normal width without significant sclerosis or bony hypertrophy. The acetabulum is grossly intact. Diffuse osteopenia. Vascular calcification in the proximal thighs. Vasectomy. CONCLUSION: Diffuse osteopenia. No fracture seen. Ashish Meade MD on December 23, 2016 at 14:19 Board Certified Radiologist. This report was verified electronically.
[2016-12-23] MEDS: EPOETIN ALFA 10,000 UNITS/ML VIAL IV PUSH PRN (14:31)
[2016-12-23] MEDS ORDERED: DIAZEPAM 2 MG TAB PO PRN (17:45)
[2016-12-23] MEDS: ASPIRIN EC 81 MG TABEC PO SCH (18:31)
[2016-12-23] MEDS: CLOPIDOGREL 75 MG TAB PO SCH (18:32)
[2016-12-23] MEDS: oxyCODONE/ACETAMINOPHEN 5 MG/325 MG TAB PO PRN (18:33)
[2016-12-23 20:00] VITALS: BP 168/72; PULSE 66; RESP 20; TEMP 97.8; O2SAT 93
[2016-12-23 20:20] VITALS: O2SAT 93
--- NOTE | 2016-12-23 20:30 | MB ---
cc: JOSIAH GARCIA MD DATE OF CONSULTATION 12/23/16 REASON FOR CONSULTATION End-stage renal disease on hemodialysis for management. HISTORY OF PRESENT ILLNESS This is 76-year-old male with past medical history of ischemic heart disease, hypertension, chronic anemia, end-stage renal disease on hemodialysis three times per week, history of chronic obstructive pulmonary disease and recent acute cholecystitis who came to the hospital because of altered mental status. I was called to see the patient for management of dialysis. The patient has been on hemodialysis Thursday, Thursday, Thursday. He missed his dialysis yesterday and was brought by because of worsening confusion off and on. The patient has acute cholecystitis and he has cholecystostomy tube for the last four months. He was supposed to get cholecystectomy and it was not done because the patient has been on Plavix after he had cardiac catheterization and stenting done three months ago. He had very bad ischemic heart disease and, according to the high school math teacher, it was important to continue the Plavix for six months since he also had a stent done. This was done twice in the last three or four months. The patient had last hemodialysis done on Thursday and went home and became more and more confused and disoriented and was brought by the to the hospital. There is no history of fever, no headache or dizziness. When I saw the patient this morning, he was awake, alert and oriented x2 and was not in acute distress but complaining of just pain in the right flank area. He has pain of cholecystitis. The patient denies any nausea or vomiting. He remembers his name. He knows he is in the hospital and he thinks that he was brought in here because of his flank pain. There is no history of fever. PAST MEDICAL HISTORY 1. Ischemic heart disease, 2. Chronic obstructive pulmonary disease, 3. Chronic anemia, 4. Hypertension, 5. End-stage renal disease on hemodialysis. PAST SURGICAL HISTORY 1. Left arm AV fistula surgery. 2. Cataract surgery 3. Bilateral inguinal hernia repair surgery 4. Partial lobectomy 5. Cholecystostomy placement REVIEW OF SYSTEMS The patient denies any headache, dizziness or blurring of vision. No shortness of breath. No chest pain. No palpitation, no nausea or vomiting. He has this right flank pain and right upper quadrant pain going on off and on. There is no history of trauma. He denies any loss of consciousness. The patient does not remember exactly that he was confused for some time. SOCIAL HISTORY The patient is , lives with his . He has past history of smoking. There is no history of heavy alcoholism. FAMILY HISTORY Noncontributory. ALLERGIES NO KNOWN DRUG ALLERGIES. MEDICATIONS Currently 1. Norvasc 5 mg once a day, 2. Pravachol 8 mg daily. 3. Aspirin 81 mg daily. 4. Plavix 75 mg daily. 5. Hytrin 1 mg q.h.s. 6. Heparin 5000 subcu q. 12-hour. 7. Zosyn 2.25 grams IV q. 8-hour. 8. Duoneb Nebulizer as needed, 9. Zofran as needed PHYSICAL EXAMINATION GENERAL: The patient is awake, alert and seems to be oriented now. VITAL SIGNS: His last blood pressure is 160/78, temperature 97.9, oxygen saturation is 94-95% on room air. HEENT: Pupils are mid constricted. Nonicteric sclerae, conjunctivae pale. NECK: Supple. JVD not elevated. LUNGS: The patient has bilateral good air entry with occasional wheezing. HEART: S1, S2, regular rhythm. ABDOMEN: Soft, lax. He has mild tenderness in the right flank area. There is no rebound or rigidity. Bowel sounds positive. EXTREMITIES: There is mild edema in the legs. Left arm has AV fistula with good bruit. LABORATORY DATA WBC count is 5.5, hemoglobin 9.0, platelet count 149, neutrophils 76.4%. Sodium is 142, potassium 4.6, chloride 109, bicarb 34, BUN 74, creatinine 8.6. Troponin I 0.07, calcium is 9.4. AST was 13, ALT was 14, total protein was 7.0 with albumin of 3.2. TSH was 0.67, INR 1.2. Toxicology screen was positive for benzodiazepine and level was less than three. Blood cultures pending. IMAGING STUDIES The patient has ultrasound of gallbladder done which shows that he has gallstone with diffuse gallbladder wall thickening, chronic kidney disease. CT scan of the brain was done without IV contrast and it shows no acute disease. Pelvic x-ray was done which shows osteopenia, no fractures seen. ASSESSMENT/PLAN 1. Acute encephalopathy 2. Recent history of acute cholecystitis. 3. End-stage renal disease on hemodialysis 4. Ischemic heart disease with recent history of cardiac cath and stent 5. Chronic obstructive pulmonary disease 6. Anemia The patient has some improvement in the encephalopathy. The workup so far is showing the CT scan was normal. Surgery is consulted for cholecystitis and he will possibly need cholecystectomy. At present, his confusion seems to be improving. The patient missed his dialysis yesterday so he was dialyzed today and we will put him back on Thursday, Thursday, Thursday so he will be dialyzed again tomorrow. The hemoglobin is low. He is started on epogen. Thank you for the consultation. I will follow the patient. MD ALEA Preciado/ /6:50 PM /8:09 PM MTDD
[2016-12-23] MEDS: TERAZOSIN HCL 1 MG CAP PO SCH (20:44)
[2016-12-24] VITALS (7 sets, daily range): BP systolic 138–160; BP diastolic 54–72; PULSE 63–70; RESP 18; TEMP 96.8–97.7; O2SAT 90–97
[2016-12-24] MEDS: ACETAMINOPHEN 325 MG TAB PO PRN (02:45)
[2016-12-24] MEDS: PIPERACIL-TAZO 2.25 GM PREMIX 50 ML IV SCH ×3 (03:05→21:44)
[2016-12-24] MEDS: HEPARIN SODIUM - SQ 10,000 UNITS/ML VIAL SQ SCH ×2 (06:13→17:35)
[2016-12-24] MEDS: oxyCODONE/ACETAMINOPHEN 5 MG/325 MG TAB PO PRN ×3 (06:34→21:45)
--- NOTE | 2016-12-24 07:14 | EKG ---
Date Performed: 12/22/2016 Time Performed: 15:13:26 PTAGE: 76 years EKG: Sinus rhythm RIGHT BUNDLE BRANCH BLOCK ABNORMAL ECG Since PREVIOUS TRACING , no significant change noted PREVIOUS TRACIN06/06/2013 12.55 DOCTOR: Moose Foster Interpretating Date/Time 12/24/2016 07:13:27
--- NOTE | 2016-12-24 07:15 | EKG ---
Date Performed: 12/22/2016 Time Performed: 19:11:37 PTAGE: 76 years EKG: NORMAL Sinus rhythm WITH PACs INDETERMINATE AXIS RIGHT BUNDLE BRANCH BLOCK ABNORMAL ECG Compared to prior tracing no sig nificant change PREVIOUS TRACING : 12/22/2016 15.13 DOCTOR: Moose Foster Interpretating Date/Time 12/24/2016 07:13:54
--- NOTE | 2016-12-24 07:31 | HHI.PR ---
cc: Ulises Denis MD; Roger Alarcon MD Subjective Subjective Notes DAILY PROGRESS NOTE FOR SURGICAL ATTENDING, DR. ULISES DENIS I feel much better Surgery is not happening I have stents in miy heart and Dr. Mojica says I can't stop blood thinners for 9 months Objective Vitals/I&O Vital Signs Date Time Temp Pulse Resp B/P (MAP) Pulse Ox O2 Delivery O2 Flow Rate FiO2 12/24/16 00:00 97.3 63 18 154/72 (99) 91 12/23/16 20:20 21 12/22/16 17:38 Room Air Labs Laboratory Tests Test 12/22/16 15:12 12/22/16 20:45 12/23/16 05:30 12/23/16 13:27 Prothrombin Time 12.8 SEC Prothromb Time International Ratio 1.2 RATIO Activated Partial Thromboplast Time 30.7 SEC Blood Urea Nitrogen 64 MG/DL 74 MG/DL Creatinine 8.20 MG/DL 8.60 MG/DL Random Glucose 83 MG/DL 82 MG/DL Total Protein 7.0 GM/DL Albumin 3.2 GM/DL Calcium Level 9.6 MG/DL 9.4 MG/DL Alkaline Phosphatase 72 U/L Aspartate Amino Transf (AST/SGOT) 13 U/L Alanine Aminotransferase (ALT/SGPT) 14 U/L Total Bilirubin 0.5 MG/DL Sodium Level 142 MEQ/L 142 MEQ/L Potassium Level 4.9 MEQ/L 4.6 MEQ/L Chloride Level 107 MEQ/L 109 MEQ/L Carbon Dioxide Level 24.5 MEQ/L 24.0 MEQ/L Ammonia 16 MCMOL/L Thyroid Stimulating Hormone 3rd Gen 0.675 uIU/ML Ethyl Alcohol Level LESS THAN 3 MG/DL Urine Opiates Screen NEG Urine Barbiturates Screen NEG Urine Amphetamines Screen NEG Urine Benzodiazepines Screen POS Urine Cocaine Screen NEG Urine Cannabinoids Screen NEG White Blood Count 5.5 TH/MM3 Red Blood Count 3.09 MIL/MM3 Hemoglobin 9.0 GM/DL Hematocrit 28.4 % Mean Corpuscular Volume 91.8 FL Mean Corpuscular Hemoglobin 29.1 PG Mean Corpuscular Hemoglobin Concent 31.7 % Red Cell Distribution Width 19.0 % Platelet Count 149 TH/MM3 Mean Platelet Volume 9.1 FL Neutrophils (%) (Auto) 76.4 % Lymphocytes (%) (Auto) 8.4 % Monocytes (%) (Auto) 11.4 % Eosinophils (%) (Auto) 3.6 % Basophils (%) (Auto) 0.2 % Neutrophils # (Auto) 4.2 TH/MM3 Lymphocytes # (Auto) 0.5 TH/MM3 Monocytes # (Auto) 0.6 TH/MM3 Eosinophils # (Auto) 0.2 TH/MM3 Basophils # (Auto) 0.0 TH/MM3 CBC Comment DIFF FINAL Differential Comment Anion Gap 9 MEQ/L Estimat Glomerular Filtration Rate 6 ML/MIN Troponin I 0.07 NG/ML Laboratory Tests Test 12/23/16 13:27 Troponin I 0.07 Date/Time Source Procedure Growth Status 12/22/16 17:35 Blood Peripheral Aerobic Blood Culture - Preliminary NO GROWTH IN 1 DAY Resulted 12/22/16 17:35 Blood Peripheral Anaerobic Blood Culture - Preliminary NO GROWTH IN 1 DAY Resulted Radiology Last 72 hours Impressions Hip and Pelvis X-Ray 12/23/16 0000 Signed Impressions: Service Date/Time: Friday, December 23, 2016 13:49 - CONCLUSION: Diffuse osteopenia. No fracture seen. Ashish Meade MD Head CT 12/22/16 1457 Signed Impressions: Service Date/Time: Thursday, December 22, 2016 15:33 - CONCLUSION: No acute disease. Ashish Davis Jr., MD Gall Bladder Ultrasound 12/22/16 0000 Signed Impressions: Service Date/Time: Thursday, December 22, 2016 18:07 - CONCLUSION: Gallstone with mild diffuse gallbladder wall thickening. Chronic kidney disease Caleb Diego MD Lungs: Clear Abdomen: Non-distended, Non-tender, BS normal Extremities: Perfused A/P Problem List: (1) Gallstones ICD Codes: K80.20 - Calculus of gallbladder without cholecystitis without obstruction Status: Chronic (2) Coronary artery disease ICD Codes: I25.10 - Atherosclerotic heart disease of [place] coronary artery without angina pectoris Status: Chronic (3) History of heart artery stent ICD Codes: Z95.5 - Presence of coronary angioplasty implant and graft Status: Chronic (4) longterm (current) use of antithrombotics/antiplatelets ICD Codes: Z79.02 - intermediate accountant (current) use of antithrombotics/antiplatelets Status: Chronic (5) COPD (chronic obstructive pulmonary disease) ICD Codes: J44.9 - Chronic obstructive pulmonary disease, unspecified Status: Chronic (6) CAD (coronary artery disease) ICD Codes: I25.10 - Atherosclerotic heart disease of [place] coronary artery without angina pectoris Status: Chronic (7) ESRD (end stage renal disease) ICD Codes: N18.6 - End stage renal disease Status: Chronic (8) Metabolic encephalopathy ICD Codes: G93.41 - Metabolic encephalopathy (9) Anemia, chronic disease ICD Codes: D63.8 - Anemia in other chronic diseases classified elsewhere Status: Chronic Assessment and Plan 76-year-old gentleman with end-stage renal disease with cardiac stents on antiplatelet therapy. It appears his symptoms have resolved on antibiotic therapy. He tells me he can't be off his antiplatelet therapy for possibly 9 months. He is seeing his student life dean Dr. Mojica's in the near future and when he gives cardiac clearance to proceed with surgery the patient will contact my office. I gave him my card so he may follow up with me when he gets clearance by the student life dean I spoke with Dr Infante about his care this is what he said . " .....The patient requires cholecystectomy. However, given his recent cardiac procedure I will caution against doing this unless it is an absolute necessity. Given what sounds like significant thrombosis of prior stents (though it could have been restenosis and again I will check this later). Discontinuing his Plavix before the 1 year [place] carries significant risk indeed, it has not even been 6 months since his last stent, so again I would caution against stopping his Plavix unless this is an absolute emergency, instead I would recommend medical therapy for as long as possible to prevent an acute cardiac event. " I agree 100% with him and the patient No surgery at this time Pt has my card to call when he is ready Attending Statement NOTE FOR SURGICAL ATTENDING, DR. ULISES DENIS I attest that I had a [id number] encounter with the patient on the same day, and personally performed and documented my assessment and findings in the medical record. The following services were provided during this hospital visit: Chart data review, vital sign assessments/reviewing monitor data Review of consultations notes if present. Medication orders/review and/or management Ordering and/or reviewing lab tests Ordering and/or interpreting/reviewing x-rays and/or diagnostic studies Care of the patient and discussion of the patient with the care team Documentation time To help prompt me to consider important information that might be impacting today's encounter and assessment, information from prior notes written by myself or my colleagues may have been "brought forward/copy and pasted" into today's note. Ulises Denis MD Dec 24, 2016 07:31
--- NOTE | 2016-12-24 08:30 | MB ---
cc: HARRIS FAN MD DATE OF CONSULTATION: 12/24/2016 REASON FOR CONSULTATION Preoperative evaluation. HISTORY OF PRESENT ILLNESS The patient is a very pleasant 76-year gentleman seen by my partner Dr. Braxton, who has a history of coronary disease. The patient apparently had stents placed back in May and then according to the patient sounds as if he had subacute stent thrombosis (verses in-stent restenosis, though the details are not yet clear to me) and this was corrected through percutaneous intervention back in June by Dr. Braxton. These procedures were done at [facility], so I do not immediately have those records but will attempt to get them when I get to the office. Because of these procedures the patient is on Plavix and the patient tells me he was told not to stop the Plavix for fear of immediate "heart attack". The patient is now admitted with possible need for cholecystectomy and thus I was consulted. The patient denies any current cardiac symptoms such as chest pain, shortness of breath, lightheadedness, dizziness, syncope. PAST MEDICAL HISTORY 1. Coronary artery disease as above. 2. End-stage renal disease. 3. COPD. CURRENT MEDICATIONS 1. Zosyn. 2. Aspirin. 3. Plavix 75 mg daily. 4. Valium. 5. Mannitol. 6. Clonidine. 7. Norvasc 5 mg daily. 8. Epotin. ALLERGIES BEE VENUM. PHYSICAL EXAMINATION VITAL SIGNS: Afebrile, pulse 63, respiratory rate 18, BP 154/72, sating 91 on 2 liters. GENERAL: A pleasant well-appearing gentleman, in no distress. NECK: No JVD. LUNGS: Clear auscultation bilaterally. CARDIOVASCULAR: Regular rate and rhythm. No murmurs appreciated. ABDOMEN: Benign. EXTREMITIES: No edema. LABORATORY DATA White count 5.5, hematocrit 28.4, platelets 149. Sodium 142, potassium 4.6, chloride 109, bicarb 24, BUN 74, creatinine 8.6. Troponins are flat and they are 0.06-0.07 range. EKG Shows sinus rhythm with nonspecific ST changes and PACs. (continue to read incorrectly reads as atrial fibrillation). CONCLUSION 1. Preoperative evaluation. The patient requires cholecystectomy. However, given his recent cardiac procedure I will caution against doing this unless it is an absolute necessity. Given what sounds like significant thrombosis of prior stents (though it could have been restenosis and again I will check this later). Discontinuing his Plavix before the 1 year asia carries significant risk indeed, it has not even been 6 months since his last stent, so again I would caution against stopping his Plavix unless this is an absolute emergency, instead I would recommend medical therapy for as long as possible to prevent an acute cardiac event. I will discuss this with the surgeon. Further recommendations will be based on his clinical course but at this point I will be available on as-needed basis and sign off at this time. Thank you again for the opportunity to participate in this patient's care. MD RUBY Wing/RADHA /7:59 AM /8:07 AM
[2016-12-24] MEDS: VITAMIN B CMPLX/VITC/FOLIC AC CAP PO SCH (09:00)
[2016-12-24] MEDS: SODIUM CHLORIDE 0.9% FLUSH 10 ML FLUSH IV FLUSH SCH ×2 (09:07→21:45)
[2016-12-24] MEDS: amLODIPine BESYLATE 5 MG TAB PO SCH (09:07)
[2016-12-24] MEDS: ASPIRIN EC 81 MG TABEC PO SCH (09:07)
[2016-12-24] MEDS: PRAVASTATIN SOD 40 MG TAB PO SCH (09:07)
[2016-12-24] MEDS: CLOPIDOGREL 75 MG TAB PO SCH (09:07)
--- NOTE | 2016-12-24 10:19 | HHI.PR ---
Subjective Remarks The patient was resting comfortably in bed. His was at the bedside. Their questions were answered. The patient states that he feels much better. His was concerned that he has been falling down and acting confused over the past few months. He says that he has had a gallbladder drain which was removed a couple months ago because it wasn't draining. Objective Vitals Vital Signs Date Time Temp Pulse Resp B/P (MAP) Pulse Ox O2 Delivery O2 Flow Rate FiO2 12/24/16 08:30 97.2 70 138/64 (88) 93 12/24/16 00:00 97.3 63 18 154/72 (99) 91 12/23/16 20:20 93 21 12/23/16 20:00 97.8 66 20 168/72 (104) 93 12/23/16 19:29 18 12/23/16 14:44 18 12/23/16 12:00 97.9 66 18 160/78 (105) 94 I/O 12/23/16 12/23/16 12/23/16 12/24/16 12/24/16 12/24/16 07:00 15:00 23:00 07:00 15:00 23:00 Intake Total 50 ml 50 ml 200 ml Output Total 2000 ml Balance 50 ml 50 ml -2000 ml 200 ml Intake Oral 100 ml IV Total 50 ml 50 ml 100 ml Output Hemodialysis 2000 ml # Voids 1 2 3 0 # Bowel Movements 0 0 Result Diagram: 12/23/16 0530 12/23/16 0530 Imaging Last Impressions Hip and Pelvis X-Ray 12/23/16 0000 Signed Impressions: Service Date/Time: Friday, December 23, 2016 13:49 - CONCLUSION: Diffuse osteopenia. No fracture seen. Ashish Meade MD Head CT 12/22/16 1457 Signed Impressions: Service Date/Time: Thursday, December 22, 2016 15:33 - CONCLUSION: No acute disease. Ashish Davis Jr., MD Gall Bladder Ultrasound 12/22/16 0000 Signed Impressions: Service Date/Time: Thursday, December 22, 2016 18:07 - CONCLUSION: Gallstone with mild diffuse gallbladder wall thickening. Chronic kidney disease Caleb Diego MD Objective Remarks GENERAL: Well-developed gentleman in NAD. SKIN: No rashes, ecchymoses or lesions. Cool and dry. HEAD: Atraumatic. Normocephalic. No temporal or scalp tenderness. EYES: Pupils equal round and reactive. Extraocular motions intact. No scleral icterus. No injection or drainage. ENT: Nose without bleeding, purulent drainage or septal hematoma. Throat without erythema, tonsillar hypertrophy or exudate. Uvula midline. Airway patent. NECK: Trachea midline. No JVD or lymphadenopathy. Supple, nontender, no meningeal signs. CARDIOVASCULAR: Regular rate and rhythm without gallops or rubs, systolic murmur RESPIRATORY: Clear to auscultation. Breath sounds equal bilaterally. No wheezes , rales, or rhonchi. GASTROINTESTINAL: Abdomen soft, non-tender, nondistended. No hepato-splenomegaly , or palpable masses. No guarding. MUSCULOSKELETAL: Left upper extremity fistula, extremities without clubbing, cyanosis, or edema. Right hip tender to palpation. NEUROLOGICAL: Awake and alert. Cranial nerves II through XII intact. Motor and sensory grossly within normal limits. Five out of 5 muscle strength in all muscle groups. Nonsensical speech A/P Problem List: (1) Metabolic encephalopathy ICD Code: G93.41 - Metabolic encephalopathy (2) ESRD (end stage renal disease) ICD Code: N18.6 - End stage renal disease Status: Chronic (3) CAD (coronary artery disease) ICD Code: I25.10 - Atherosclerotic heart disease of grindstone coronary artery without angina pectoris Status: Chronic (4) COPD (chronic obstructive pulmonary disease) ICD Code: J44.9 - Chronic obstructive pulmonary disease, unspecified Status: Chronic Assessment and Plan Cholecystitis GB US with wall thickening. Surgery consult appreciated. Unable to proceed with surgery as had a recent stent placement. - anticipate cholecystectomy once cleared by cardiology after patient can be taken off from aspirin and Plavix. - pain control and antiemetics as needed. - continue Zosyn. Metabolic encephalopathy Possibly s/t above or drug reaction. Has been falling down at home. - hold diazepam, oxycodone and gabapentin. - treatment as above. - neuro checks. - Check orthostatics. - Telemetry. - Carotid duplex and echo ordered. - PT/ OT. End stage renal disease On dialysis. - Continue hemodialysis Thursday/Thursday/Thursday - Nephrology consultation appreciated. - supplements as needed. CAD (coronary artery disease) Atherosclerotic heart disease of grindstone coronary artery without angina pectoris. Trops elevated at 0.07, may be s/t renal insufficiency. - Patient on Plavix, aspirin. Continue per cardiology. - continue to follow on telemetry. Chronic obstructive pulmonary disease Without evidence of acute exacerbation. - continue bronchodilators as needed. Right hip pain Tender on exam. X ray with diffuse osteopenia. - PT/ OT. PPx: On hold for surgery Vinny Pedersen DO Dec 24, 2016 10:19
[2016-12-24 10:36] LABS: AUTOMATED NEUTROPHIL # 2.6 TH/MM3 (1.8-7.7); BASOPHIL % 0.5 % (0.0-2.0); EOSINOPHIL # 0.3 TH/MM3 (0-0.4); EOSINOPHIL % 7.2 % (0.0-4.0); HEMATOCRIT 27.4 % (39.0-51.0); HEMO FLAGS DIFF FINAL; LYMPH % 10.9 % (9.0-44.0); LYMPHOCYTE # 0.4 TH/MM3 (1.0-4.8); MEAN CELL VOLUME 90.5 FL (80.0-100.0); MEAN CORPUSCULAR HEMOGLOBIN 30.1 PG (27.0-34.0); MEAN CORPUSCULAR HGB CONC 33.2 % (32.0-36.0); MONO % 12.1 % (0.0-8.0); NEUT % 69.3 % (16.0-70.0); PLATELET COUNT 158 TH/MM3 (150-450); RED BLOOD COUNT 3.03 MIL/MM3 (4.50-5.90); RED CELL DISTRIBUTION WIDTH 18.2 % (11.6-17.2); WHITE BLOOD COUNT 3.7 TH/MM3 (4.0-11.0)
[2016-12-24 10:47] LABS: BICARBONATE 31.3 MEQ/L (21.0-32.0)
--- NOTE | 2016-12-24 12:27 | RADRPT ---
EXAM DATE/TIME: 12/24/2016 10:52 [facility] COMPARISON: US CAROTID ARTERIES, March 16, 2012, 20:48. EXTERNAL COMPARISON : [facility], MRA CAROTIDS W/ 3D PROC. W/O CONTRAST June 07, 2015. INDICATIONS : Syncope. MEDICAL HISTORY : Myocardial infarction. Chronic obstructive pulmonary disease. Hypercholesterolemia. Stroke. Neuropath y. Renal failure. Dialysis. Hiatal hernia. Hypertension. Anticoagulant therapy, plavix. Arthritis. Rubi ng cancer. MRSA. Anemia. SURGICAL HISTORY : Cataract removal. CABG. Coronary stents. Cardiac catheterization. Bilateral inguinal hernia repair. S ternum removed. Partial lobectomy. ENCOUNTER: Subsequent ACUITY: 1 day PAIN SCORE: 0/10 LOCATION: Bilateral neck PEAK SYSTOLIC VELOCITIES (cm/sec): ICA/CCA RATIO: Right: 2.7 Left: 6.3 ICA: Right: 223 Left: 279 CCA: Right: 83 Left: 44 ECA: Right: 149 Left: 133 VERTEBRAL: Right: 89 antegrade Left: 43 antegrade Elevated flow velocities and ICA/CCA ratios have been found to correlate with increased degrees of vessel stenosis, calculated as percentage of diameter relative to a normal segment of distal ICA/CCA FINDINGS: RIGHT CAROTID: Diffuse calcified plaque involving the common carotid and extracranial ICA. It is abundant at the ICA origin. The calcified nature generates shadowing limiting grayscale analysis. The the ICA waveform s hows a reduced amplitude and delayed upstroke. Antegrade diastolic flow remains. LEFT CAROTID: Diffuse calcified plaque involving the common carotid and extracranial ICA. It is abundant at the ICA origin. The calcified nature generates shadowing limiting grayscale analysis. The the ICA waveform s hows a reduced amplitude and delayed upstroke. Antegrade diastolic flow remains. VERTEBRAL ARTERIES: Antegrade flow is seen in both vertebral arteries. MISCELLANEOUS: None. CONCLUSION: 1. Heavily calcified atherosclerotic plaque generating a greater than 69% stenosis of the left ICA an d 50-69% stenosis of the right ICA. Consider CTA of the carotids to further evaluate. 2. Antegrade flow involving both vertebral arteries. Ashish Davis Jr., MD on December 24, 2016 at 12:19 Board Certified Radiologist. This report was verified electronically.
--- NOTE | 2016-12-24 16:51 | HHI.NPPN ---
Subjective History of Present Illness 76-year-old male with past medical history of ischemic heart disease, hypertension, chronic anemia, end-stage renal disease on hemodialysis three times per week, history of chronic obstructive pulmonary disease and recent acute cholecystitis who came to the hospital because of altered mental status. I was called to see the patient for management of dialysis. The patient has been on hemodialysis Thursday, Thursday, Thursday. Additional Remarks Patient is alert, no SOB, no nausea, seen after HD, still has Rt flank and RUQ pain. Review of Systems General Constitutional: Fatigue Cardiovascular Cardiac: ALEX Gastrointestinal Gastrointestinal: Abdominal Pain, Nausea & Vomiting Objective Data Data 12/24/16 12/25/16 19:00 07:00 Output Total 1500 ml Balance -1500 ml Output Hemodialysis 1500 ml Vital Signs Date Time Temp Pulse Resp B/P (MAP) Pulse Ox O2 Delivery O2 Flow Rate FiO2 12/24/16 15:00 96.8 63 18 160/70 (100) 97 148/69 (95) 12/24/16 08:30 97.2 70 138/64 (88) 93 12/24/16 00:00 97.3 63 18 154/72 (99) 91 12/23/16 20:20 93 21 12/23/16 20:00 97.8 66 20 168/72 (104) 93 12/23/16 19:29 18 -: 12/24/16 1010 12/24/16 1010 Physical Exam General Appearance: No Acute Distress, Comfortable Eyes Eye Exam: Pupils Equal Pulmonary Resp Exam: Breath Sounds Equal, No Distress, Rhonchi, Decreased Bases Cardiology CV Exam: Regular, Normal Sinus Rhythm Gastrointestinal/Abdomen GI Exam: Soft, Non-Tender, Bowel Sounds Present Extremeties Extremities Exam: Trace Edema Neurologic Neuro Exam: Alert, Awake, Oriented Psychiatric Psych Exam: Appropriate Responses Assessment/Plan Assessment Summary: Anemia of CKD, Hypertension, End Stage Renal Disease Problem List: (1) ESRD (end stage renal disease) ICD Codes: N18.6 - End stage renal disease Status: Chronic (2) CAD (coronary artery disease) ICD Codes: I25.10 - Atherosclerotic heart disease of [place] coronary artery without angina pectoris Status: Chronic (3) COPD (chronic obstructive pulmonary disease) ICD Codes: J44.9 - Chronic obstructive pulmonary disease, unspecified Status: Chronic (4) Metabolic encephalopathy ICD Codes: G93.41 - Metabolic encephalopathy (5) Anemia, chronic disease ICD Codes: D63.8 - Anemia in other chronic diseases classified elsewhere Status: Chronic (6) Gallstones ICD Codes: K80.20 - Calculus of gallbladder without cholecystitis without obstruction Status: Chronic Plan Patient has been on HD, Mon., Wed. and Thu. HD done today , tolerated well. His Encephalopathy is better. Seen by cardiology, need to continue Plaviix due to stent. Wait for Surgeon's recommendation. On Epogen for anemia. Continue HD,. MWF. Rosetta Barrett MD Dec 24, 2016 16:51
[2016-12-24] MEDS: NYSTATIN SUSP 500,000 U/5 ML CUP SWISH-SWAL SCH (21:44)
[2016-12-24] MEDS: TERAZOSIN HCL 1 MG CAP PO SCH (21:45)
[2016-12-24 22:07] LABS: BLOOD, URINE NEG (NEG); GLUCOSE,URINE NEG (NEG); KETONE, URINE NEG (NEG); NITRITE,URINE NEG (NEG); PH, URINE 7.5 (5.0-8.5)
[2016-12-24 22:12] LABS: URINE COLOR YELLOW (YELLW/STRAW)
[2016-12-24 22:13] LABS: MUCUS URINE FEW /lpf (OCC); RBC, URINE 0-3 /hpf (0-3)
[2016-12-24 22:14] LABS: COMMENT (UR) CULTURE INDICATED; CULTURE IF INDICATED CULTURE INDICATED; SQUAMOUS EPITHELIAL CELL URINE 0-5 /hpf (0-5)
--- NOTE | 2016-12-24 23:13 | MB ---
cc: WILLIE HAN M.D. DATE OF CONSULTATION 12/24/16 HISTORY OF PRESENT ILLNESS The patient is 76-year-old seen in neurological consultation because of falls and confusion. is at bedside. He has been having symptoms for 3 months but worsened the past 2 weeks when there had been some slurring, falling. Mostly he has been quite confused and delirious. He is often talking about being in [place] where he has never been, talking about people chasing him and the family with guns etc. At times he does not know where he is in the house. The patient vaguely described some spasming in his arms. 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 He has been on the dialysis for 6 years. History of coronary artery disease and COPD, bypass heart surgery. He was alert, pleasant and he was actually fully oriented. His was at bedside. He was cooperative, his ocular movements were full. Visual owens full. Pupils equal and reactive. There is slight left facial weakness and slight left ptosis. There is also left upper extremity weakness which is mild but there is pronation drift and fine finger coordination impairment on the left. Left lower extremity seems to be reasonably strong on the bedside exam. The reflexes were 1+ in the upper extremities, trace versus absent in the lower extremities. MEDICATIONS He is listed as taking baby aspirin at home, amlodipine, terazosyn, bumetanide, Nephro-Lavern, Plavix, oxycodone, simvastatin 80 milligrams a day and also gabapentin 600 milligrams twice a day which has been used for spasming of the arms. IMAGING STUDIES The CT head showed no acute abnormality and the carotid ultrasound shows over 69% stenosis of the left ICA and 50-69 on the right ICA. LABORATORY DATA Today WBC 3.7, hemoglobin 9.1, platelets 158. Sodium, potassium normal. BUN 47, creatinine 6.3, glucose 130. Urine toxicology positive for benzos and otherwise negative. ASSESSMENT This gentleman presents with quite significant delirium, hallucinations and some paranoia. There is a history of renal failure under dialysis. These findings are probably all encephalopathic, possibly metabolic but possibly with some association with an underlying early dementia. The left internal carotid artery stenosis is probably not relevant for his current delirium/hallucinations. Nonetheless, this is a significant finding. Because of his renal failure, he is not an ideal candidate for CT angio or MRA with contrast. We can try obtaining an MRA neck without contrast which will give us some additional information. He reports, actually his reports, an MRI of brain 10 days ago being unremarkable. We will check the ammonia, B12, thyroid. Thank you for asking us to assist in his care. Willie Han MD OFC/EO /6:52 PM /10:52 PM
[2016-12-25] VITALS (8 sets, daily range): BP systolic 141–160; BP diastolic 58–74; PULSE 61–78; RESP 15–20; TEMP 95.1–97.8; O2SAT 90–98
[2016-12-25] MEDS: oxyCODONE/ACETAMINOPHEN 5 MG/325 MG TAB PO PRN ×4 (03:03→22:05)
[2016-12-25] MEDS: PIPERACIL-TAZO 2.25 GM PREMIX 50 ML IV SCH ×3 (03:09→22:04)
[2016-12-25] MEDS: HEPARIN SODIUM - SQ 10,000 UNITS/ML VIAL SQ SCH ×2 (06:55→16:40)
[2016-12-25 07:20] LABS: HEMATOCRIT 28.8 % (39.0-51.0); MEAN CELL VOLUME 90.3 FL (80.0-100.0); MEAN CORPUSCULAR HGB CONC 32.1 % (32.0-36.0); PLATELET COUNT 158 TH/MM3 (150-450); RED BLOOD COUNT 3.19 MIL/MM3 (4.50-5.90); RED CELL DISTRIBUTION WIDTH 18.5 % (11.6-17.2); REVIEW FLAG FINAL; WHITE BLOOD COUNT 3.1 TH/MM3 (4.0-11.0)
[2016-12-25 07:27] LABS: POTASSIUM 3.8 MEQ/L (3.5-5.1)
[2016-12-25 07:32] LABS: BICARBONATE 33.8 MEQ/L (21.0-32.0); MAGNESIUM 2.1 MG/DL (1.5-2.5)
[2016-12-25] MEDS: VITAMIN B CMPLX/VITC/FOLIC AC CAP PO SCH (08:51)
[2016-12-25] MEDS: amLODIPine BESYLATE 5 MG TAB PO SCH (08:51)
[2016-12-25] MEDS: PRAVASTATIN SOD 40 MG TAB PO SCH (08:52)
[2016-12-25] MEDS: ASPIRIN EC 81 MG TABEC PO SCH (08:52)
[2016-12-25] MEDS: CLOPIDOGREL 75 MG TAB PO SCH (08:52)
[2016-12-25] MEDS: NYSTATIN SUSP 500,000 U/5 ML CUP SWISH-SWAL SCH ×4 (08:53→22:05)
[2016-12-25] MEDS: SODIUM CHLORIDE 0.9% FLUSH 10 ML FLUSH IV FLUSH SCH ×2 (08:53→22:04)
--- NOTE | 2016-12-25 11:31 | RADRPT ---
EXAM DATE/TIME: 12/25/2016 10:50 [facility] COMPARISON: No previous studies available for comparison. INDICATIONS : Pain. Falls and confusion. MEDICAL HISTORY : Hypertension. Chronic obstructive pulmonary disease. Renal disease, end stage. SURGICAL HISTORY : Lobectomy. Inguinal hernia repair. CABG Penile implant. ENCOUNTER: Initial ACUITY: 1 day PAIN SCORE: 0/10 LOCATION: Head. TECHNIQUE: Multiplanar, multisequence MRI examination of the cervical spine was performed. FINDINGS: A couple millimeters of degenerative anterolisthesis seen at C4/C5 and C5/C6. Otherwise there is gene ralized straightening of the cervical spine. No fracture or acute appearing malalignment. Moderate de generative changes are seen anteriorly and laterally at C1/C2. C2-C3: The disc is desiccated and has slight loss of height. There mild uncovertebral and facet degenerative changes are present. No foraminal or spinal stenosis. C3-C4: The disc is desiccated and has moderate to severe loss of height. Very small, broad large diffuse dis c osteophyte complex is present and there is moderate bilateral uncovertebral and facet osteoarthriti s. There is mild spinal stenosis without cord compression or cord signal abnormality. There is mild b ilateral foraminal stenosis. C4-C5: The disc is desiccated and has moderate to severe loss of height. Grade 1 degenerative anterolisthesi s. Very small, broad large diffuse disc osteophyte complex present and there is moderate bilateral un covertebral and facet osteoarthritis. There is mild spinal stenosis without cord compression or cord signal abnormality. There is mild bilateral foraminal stenosis. C5-C6: The disc is desiccated and has severe loss of height. Reactive appearing endplate marrow edema is pre sent. There is a small to moderate, broad large diffuse disc osteophyte complex and right greater the left uncovertebral and facet osteoarthritis. There is moderate spinal stenosis with borderline cord compression. No cord signal abnormality. There is moderate to severe right and mild to moderate left foraminal stenosis. C6-C7: The disc is desiccated and has severe loss of height. There is a small, broad large diffuse disc oste ophyte complex and moderate bilateral uncovertebral and facet osteoarthritis. There is mild spinal st enosis without cord compression or cord signal abnormality. There is mild to moderate bilateral remy inal stenosis. Reactive appearing endplate marrow edema is present. C7-T1: The disc is desiccated and has moderate loss of height. Mild reactive endplate marrow edema. There is a very small, broad large diffuse disc osteophyte complex and also moderate right, severe left facet osteoarthritis. No significant foraminal or spinal stenosis. CONCLUSION: 1. Multilevel cervical spine degenerative changes as above. 2. Mild to moderate degrees of spinal stenosis. There is borderline cord compression at C5/C6. No cor d signal abnormality. 3. Moderate to severe right foraminal stenosis at C5/C6. Otherwise generally mild degrees of foramina l stenosis. 4. Reactive appearing endplate marrow edema at C5/C6, C6/C7 and C7/T1. Also grade 1 degenerative appe aring anterolisthesis at C4/C5 and C5/C6. No fracture or acute appearing malalignment of the cervical spine. Caleb Cartagena MD on December 25, 2016 at 11:19 Board Certified Radiologist. This report was verified electronically.
--- NOTE | 2016-12-25 12:13 | ECHRPT ---
Indication: cva/tia CONCLUSIONS Upper normal left ventricular size. Mild concentric left ventricular hypertrophy. The left ventricular systolic function is low normal with an estimated ejection fraction in the rang e of 50- 55%. No definite wall motion abnormalities. The left atrial size is mildly dilated. Moderate mitral annular calcification is present. Mild mitral valve regurgitation. Trace aortic valve regurgitation. Mild to moderate aortic valve sclerosis is present. There is mild tricuspid valve regurgitation. The estimated pulmonary arterial pressure is 42 mmHg. BP: / HR: Rhythm: Sinus MEASUREMENTS (Male / Female) Normal Values Technical Quality:Good 2D ECHO LV Diastolic Diameter PLAX 5.6 cm 4.2 - 5.9 / 3.9 - 5.3 cm LV Systolic Diameter PLAX 4.2 cm IVS Diastolic Thickness 1.4 cm 0.6 - 1.0 / 0.6 - 0.9 cm LVPW Diastolic Thickness 0.8 cm 0.6 - 1.0 / 0.6 - 0.9 cm LV Relative Wall Thickness 0.4 RV Internal Dim ED PLAX 1.9 cm LA Systolic Diameter LX 3.9 cm 3.0 - 4.0 / 2.7 - 3.8 cm M-MODE Aortic Root Diameter MM 3.6 cm AV Cusp Separation MM 2.2 cm DOPPLER AV Peak Velocity 251.0 cm/s AV Peak Gradient 25.2 mmHg AV Mean Gradient 11.0 mmHg AV Velocity Time Integral 56.3 cm AI Peak Velocity 312.0 cm/s AI Peak Gradient 38.9 mmHg AI Pressure Half Time 696.0 ms LVOT Peak Velocity 56.0 cm/s LVOT Peak Gradient 1.3 mmHg LVOT Velocity Time Integral 22.4 cm MV Peak Velocity 121.0 cm/s MV Peak Gradient 5.9 mmHg MV Mean Velocity 58.4 cm/s MV Mean Gradient 2.0 mmHg MR Peak Velocity 406.0 cm/s MR Peak Gradient 65.9 mmHg Mitral E Point Velocity 76.0 cm/s Mitral A Point Velocity 63.7 cm/s Mitral E to A Ratio 1.2 TR Peak Velocity 307.0 cm/s TR Peak Gradient 37.7 mmHg Right Atrial Pressure 5.0 mmHg Pulmonary Artery Systolic Pressu 42.7 mmHg Right Ventricular Systolic Press 42.7 mmHg FINDINGS LEFT VENTRICLE Upper normal left ventricular size. Mild concentric left ventricular hypertrophy. The left ventricular systolic function is low normal with an estimated ejection fraction in the rang e of 50- 55%. No definite wall motion abnormalities. RIGHT VENTRICLE Normal right ventricular size and systolic function. LEFT ATRIUM The left atrial size is mildly dilated. RIGHT ATRIUM The right atrial size is normal. ATRIAL SEPTUM Normal atrial septal thickness without atrial level shunting by limited color doppler interrogation. AORTA The aortic root and proximal ascending aorta are normal in size on limited imaging. MITRAL VALVE Moderate mitral annular calcification is present. Mild mitral valve regurgitation. AORTIC VALVE Trace aortic valve regurgitation. Mild to moderate aortic valve sclerosis is present. TRICUSPID VALVE There is mild tricuspid valve regurgitation. The estimated pulmonary arterial pressure is 42 mmHg. PULMONARY VALVE Trivial pulmonary valve regurgitation. VESSELS The inferior vena cava is normal in size. PERICARDIUM No pericardial effusion. Jarek Braxton MD (Electronically Signed) Final Date:25 December 2016 12:12
[2016-12-25] MEDS: DOCUSATE SODIUM 100 MG CAP PO SCH ×2 (12:36→22:04)
[2016-12-25] MEDS: SENNOSIDES 8.6 MG TAB PO SCH (12:37)
--- NOTE | 2016-12-25 14:10 | RADRPT ---
EXAM DATE/TIME: 12/25/2016 10:50 [place] COMPARISON: MRI FOOT RIGHT W/O CONTRAST, December 07, 2011, 14:50. INDICATIONS : Stroke. Confusion and slurred speech. MEDICAL HISTORY : Hypertension. Chronic obstructive pulmonary disease. Renal disease, end stage. SURGICAL HISTORY : Lobectomy. CABG Inguinal hernia repair. Penile implant. ENCOUNTER: Initial ACUITY: 1 day PAIN SCORE: 0/10 LOCATION: Head. Percent stenosis is calculated using the diameter of the stenotic region over the diameter of the nor mal distal internal carotid artery. TECHNIQUE: 3D time of flight MRA of the extracranial circulation was performed using a neurovascular coil. Post processing was performed including rotating subvolume maximum intensity projections of each carotid artery, rotating full-volume maximum intensity projections of both carotid arteries, sagittal and cor onal sliding thin-slab reformations of each carotid artery, and left oblique sliding thin slab reform ation through the aortic arch to include the origin of the arch branch vessels. FINDINGS: AORTIC ARCH: There is limited visualization of the arch secondary to motion artifact. Aorta and great vessels appe ar patent. RIGHT CAROTID: The right common carotid is patent. There is atherosclerotic plaquing at the bifurcation. This result s in a high grade stenosis in the origin of the right internal carotid. This is estimated to be range 60% by NASCET criteria. LEFT CAROTID: The left common carotid is widely patent. There is extensive atherosclerotic plaquing of the bifurcat ion. This results in a high grade stenosis in the origin of the left internal carotid. This is estima kathy to be in the range of 60% by NASCET criteria. The left external carotid is not identified. VERTEBRALS: The right vertebral artery is widely patent. Left vertebral artery is not identified. The basilar is widely patent. CONCLUSION: 1. Limited examination due to the [id number] technique. 2. 3. Right carotid: 4. Atherosclerotic plaquing at the bifurcation with stenosis measured at 60% by NASCET criteria. 5. 6. Left carotid: 7. Atherosclerotic plaquing at the bifurcation with stenosis measured at approximately 60% by NASCET criteria. Anthony Macias MD on December 25, 2016 at 12:56 Board Certified Radiologist. This report was verified electronically.
--- NOTE | 2016-12-25 17:14 | HHI.PR ---
Subjective Remarks The patient said he was anxious to go home. He wanted to know the results of the tests. He said he had no abdominal pain. He said he worked with occupational therapy earlier. He is constipated but does not want anything strong to help him go. Discussed with nursing. Objective Vitals Vital Signs Date Time Temp Pulse Resp B/P (MAP) Pulse Ox O2 Delivery O2 Flow Rate FiO2 12/25/16 16:08 95.6 61 16 152/68 (96) 98 12/25/16 12:00 95.1 65 17 143/58 (86) 96 12/25/16 08:43 96.5 78 15 160/74 (102) 91 12/25/16 08:00 92 21 12/25/16 04:00 97.8 64 18 141/58 (85) 91 12/25/16 00:00 96.7 66 18 155/65 (95) 90 147/67 (93) 158/67 (97) 12/24/16 22:25 94 21 12/24/16 20:00 97.4 68 18 141/54 (83) 90 I/O 12/24/16 12/24/16 12/24/16 12/25/16 12/25/16 12/25/16 07:00 15:00 23:00 07:00 15:00 23:00 Intake Total 200 ml 240 ml 240 ml 100 ml Output Total 1500 ml 140 ml Balance 200 ml -1500 ml 240 ml 240 ml -40 ml Intake Oral 100 ml 240 ml 240 ml IV Total 100 ml 100 ml Output Urine Total 140 ml Hemodialysis 1500 ml # Voids 0 0 1 # Bowel Movements 0 0 Result Diagram: 12/25/1670412/25/16704 Imaging Last Impressions Neck Magnetic Resonance Angiography 12/25/16 0000 Signed Impressions: Service Date/Time: November 10:50 - CONCLUSION: 1. Limited examination due to the [id number] technique. 2. 3. Right carotid: 4. Atherosclerotic plaquing at the bifurcation with stenosis measured at 60%% by NASCET criteria. 5. 6. Left carotid: 7. Atherosclerotic plaquing at the bifurcation with stenosis measured at approximately 60%% by NASCET criteria. Anthony Macias MD Cervical Spine MRI 12/25/16 0000 Signed Impressions: Service Date/Time: November 10:50 - CONCLUSION: 1. Multilevel cervical spine degenerative changes as above. 2. Mild to moderate degrees of spinal stenosis. There is borderline cord compression at C5/C6. No cord signal abnormality. 3. Moderate to severe right foraminal stenosis at C5/C6. Otherwise generally mild degrees of foraminal stenosis. 4. Reactive appearing endplate marrow edema at C5/C6, C6/C7 and C7/T1. Also grade 1 degenerative appearing anterolisthesis at C4/C5 and C5/C6. No fracture or acute appearing malalignment of the cervical spine. Caleb Cartagena MD Carotid Artery Ultrasound 12/24/16 0000 Signed Impressions: Service Date/Time: Saturday, December 24, 2016 10:52 - CONCLUSION: 1. Heavily calcified atherosclerotic plaque generating a greater than 69%% stenosis of the left ICA and 50-69%% stenosis of the right ICA. Consider CTA of the carotids to further evaluate. 2. Antegrade flow involving both vertebral arteries. Ashish Davis Jr., MD Hip and Pelvis X-Ray 12/23/16 0000 Signed Impressions: Service Date/Time: Friday, December 23, 2016 13:49 - CONCLUSION: Diffuse osteopenia. No fracture seen. Ashish Meade MD Head CT 12/22/16 1457 Signed Impressions: Service Date/Time: Thursday, December 22, 2016 15:33 - CONCLUSION: No acute disease. Ashish Davis Jr., MD Gall Bladder Ultrasound 12/22/16 0000 Signed Impressions: Service Date/Time: Thursday, December 22, 2016 18:07 - CONCLUSION: Gallstone with mild diffuse gallbladder wall thickening. Chronic kidney disease Caleb Diego MD Objective Remarks GENERAL: Well-developed gentleman in [facility]. SKIN: No rashes, ecchymoses or lesions. Cool and dry. HEAD: Atraumatic. Normocephalic. No temporal or scalp tenderness. EYES: Pupils equal round and reactive. Extraocular motions intact. No scleral icterus. No injection or drainage. ENT: Nose without bleeding, purulent drainage or septal hematoma. Throat without erythema, tonsillar hypertrophy or exudate. Uvula midline. Airway patent. NECK: Trachea midline. No JVD or lymphadenopathy. Supple, nontender, no meningeal signs. CARDIOVASCULAR: Regular rate and rhythm without gallops or rubs, systolic murmur RESPIRATORY: Mild crackles at the bases. GASTROINTESTINAL: Abdomen soft, non-tender, nondistended. No hepato-splenomegaly , or palpable masses. No guarding. MUSCULOSKELETAL: Left upper extremity fistula, extremities without clubbing, cyanosis, or edema. Right hip tender to palpation. NEUROLOGICAL: Awake and alert. Cranial nerves II through XII intact. Motor and sensory grossly within normal limits. Five out of 5 muscle strength in all muscle groups. Nonsensical speech. PSYCH: Mood and affect appropriate. Medications and IVs Current Medications Medications (Trade) Dose Ordered Sig/Ankush Route Start Time Stop Time Status Last Admin (NS Flush) 2 ml UNSCH PRN IV FLUSH 12/22/16 17:15 (NS Flush) 2 ml BID IV FLUSH 12/22/16 21:00 12/25/16 08:53 (Tylenol) 650 mg Q4H PRN PO 12/22/16 17:15 12/24/16 02:45 (Heparin Inj) 5,000 units Q12H SQ 12/22/16 18:00 12/25/16 16:40 (Narcan Inj) 0.4 mg UNSCH PRN IV PUSH 12/22/16 17:15 (Norvasc) 5 mg DAILY PO 12/23/16 09:00 12/25/16 08:51 (Hytrin) 1 mg HS PO 12/22/16 21:00 12/24/16 21:45 (Pravachol) 80 mg DAILY PO 12/23/16 09:00 12/25/16 08:52 (Duoneb Neb) 1 ampule Q6HR NEB PRN NEB 12/22/16 17:30 Sodium Chloride 1,000 ml @ 0 mls/hr Q0M PRN OTHER 12/23/16 09:56 (Heparin Inj) 8,000 units UNSCH PRN IV FLUSH 12/23/16 10:00 Sodium Chloride 1,000 ml @ 200 mls/hr Q5H PRN IV 12/23/16 09:56 Sodium Chloride 1,000 ml @ 0 mls/hr Q0M PRN OTHER 12/23/16 09:56 (Mannitol Inj) 12.5 gm UNSCH PRN IV 12/23/16 10:00 Albumin Human 100 ml @ 60 mls/hr UNSCH PRN IV 12/23/16 10:00 (NS Flush) 5 ml UNSCH PRN IV FLUSH 12/23/16 10:00 (Heparin Inj) UNSCH PRN .XX 12/23/16 10:00 (Gentamicin (Dialysis) Inj) 20 mg UNSCH PRN OTHER 12/23/16 10:00 (Zofran Inj) 4 mg UNSCH PRN IV PUSH 12/23/16 10:00 (Tylenol) 650 mg UNSCH PRN PO 12/23/16 10:00 (Benadryl) 25 mg UNSCH PRN PO 12/23/16 10:00 (Nitrostat Sl) 0.4 mg UNSCH PRN SL 12/23/16 10:00 (Catapres) 0.1 mg UNSCH PRN PO 12/23/16 10:00 (Epogen Inj) 10,000 units UNSCH PRN IV PUSH 12/23/16 10:00 12/23/16 14:31 (Gelfoam 12 Mm/7 Mm Top) 1 foam UNSCH PRN TOP 12/23/16 10:00 (Nephrocaps) 1 cap DAILY PO 12/24/16 09:00 12/25/16 08:51 Piperacillin Sod/ Tazobactam Sod 50 ml @ 100 mls/hr Q8H IV 12/23/16 20:00 12/25/16 12:37 (Percocet 5-325 Mg) 1 tab Q4H PRN PO 12/23/16 17:30 12/25/16 16:41 (Ecotrin Ec) 81 mg DAILY PO 12/23/16 18:00 12/25/16 08:52 (Plavix) 75 mg DAILY PO 12/23/16 18:00 12/25/16 08:52 (Valium) 2 mg HS PRN PO 12/23/16 17:45 (Mycostatin Liq) 5 ml QID SWISH-SWAL 12/24/16 21:00 12/25/16 16:40 (Colace) 100 mg BID PO 12/25/16 11:15 12/25/16 12:36 (Senokot) 17.2 mg DAILY PO 12/25/16 11:15 12/25/16 12:37 A/P Problem List: (1) Metabolic encephalopathy ICD Code: G93.41 - Metabolic encephalopathy (2) ESRD (end stage renal disease) ICD Code: N18.6 - End stage renal disease Status: Chronic (3) CAD (coronary artery disease) ICD Code: I25.10 - Atherosclerotic heart disease of [place] coronary artery without angina pectoris Status: Chronic (4) COPD (chronic obstructive pulmonary disease) ICD Code: J44.9 - Chronic obstructive pulmonary disease, unspecified Status: Chronic Assessment and Plan Cholecystitis GB US with wall thickening. Surgery consult appreciated. Unable to proceed with surgery as had a recent stent placement. - anticipate cholecystectomy once cleared by cardiology after patient can be taken off from aspirin and Plavix. - pain control and antiemetics as needed. - continue Zosyn. Metabolic encephalopathy Possibly s/t above or drug reaction. Has been falling down at home. Not found to be orthostatic. Neurology consult appreciated. MRI of cervical spine showed : Multilevel cervical spine degenerative changes; Mild to moderate degrees of spinal stenosis; There is borderline cord compression at C5/C6; No cord signal abnormality; Moderate to severe right foraminal stenosis at C5/C6; Reactive appearing endplate marrow edema at C5/C6, C6/C7 and C7/T1; Also grade 1 degenerative appearing anterolisthesis at C4/C5 and C5/C6; No fracture or acute appearing malalignment of the cervical spine. MRA of carotids with 60% stenoses. Echo with EF of 50-55%. - hold diazepam, oxycodone and gabapentin. Improving. - treatment as above. - neuro checks. - Telemetry. - PT/ OT. Arrange for [facility]. CM will be consulted. End stage renal disease On dialysis. - Continue hemodialysis Thursday/Thursday/Thursday - Nephrology consultation appreciated. - supplements as needed. CAD (coronary artery disease) Atherosclerotic heart disease of [place] coronary artery without angina pectoris. Trops elevated at 0.07, may be s/t renal insufficiency. - Patient on Plavix, aspirin. Continue per cardiology. - continue to follow on telemetry. Chronic obstructive pulmonary disease Without evidence of acute exacerbation at this time. - continue bronchodilators as needed. Right hip pain Tender on exam. X ray with diffuse osteopenia. - PT/ OT. PPx: Heparin Discharge Planning Anticipate d/c with [facility] in AM if cleared by neurology Vinny Pedersen DO Dec 25, 2016 17:14
--- NOTE | 2016-12-25 17:15 | HHI.FF ---
Face to Face Verification Diagnosis: (1) Falls (2) Cholecystitis (3) Metabolic encephalopathy (4) Coronary artery disease (5) ESRD (end stage renal disease) Physical Therapy Order: Evaluate and Treat, Improve ambulation, Strength and gait training Occupational Therapy Order: Evaluate and Treat, Improve ADL, Gross motor coordination, Fine motor coordination Home Health Nursing Order: Medical education Signs/symptoms of disease process Medication education-adverse effect Nursing assessment with vital signs I have seen patient Manolo Scott on 12/25/16. My clinical findings support the need for the requested home health care services because: Ltd mobility - disease progression Deconditioned w/ increased weakness Med compliance is questionable Limited ability to care for self High risk of falls I certify that my clinical findings support that this patient is homebound because: Impaired cognitive ability/safety Hx COPD- exertion dyspnea/weakness Unsteady gait/balance Unsafe to leave home unassisted Vinny Pedersen DO Dec 25, 2016 17:15
--- NOTE | 2016-12-25 17:21 | HHI.NPPN ---
Subjective History of Present Illness 76-year-old male with past medical history of ischemic heart disease, hypertension, chronic anemia, end-stage renal disease on hemodialysis three times per week, history of chronic obstructive pulmonary disease and recent acute cholecystitis who came to the hospital because of altered mental status. I was called to see the patient for management of dialysis. The patient has been on hemodialysis Thursday, Thursday, Thursday. Additional Remarks Patient is alert, no SOB, no nausea, abd. pain is better. Review of Systems General Constitutional: Fatigue Cardiovascular Cardiac: ALEX Gastrointestinal Gastrointestinal: Abdominal Pain, Nausea & Vomiting Objective Data Data 12/25/16 12/26/16 19:00 07:00 Intake Total 100 ml Output Total 140 ml Balance -40 ml IV Total 100 ml Output Urine Total 140 ml Vital Signs Date Time Temp Pulse Resp B/P (MAP) Pulse Ox O2 Delivery O2 Flow Rate FiO2 12/25/16 16:08 95.6 61 16 152/68 (96) 98 12/25/16 12:00 95.1 65 17 143/58 (86) 96 12/25/16 08:43 96.5 78 15 160/74 (102) 91 12/25/16 08:00 92 21 12/25/16 04:00 97.8 64 18 141/58 (85) 91 12/25/16 00:00 96.7 66 18 155/65 (95) 90 147/67 (93) 158/67 (97) 12/24/16 22:25 94 21 12/24/16 20:00 97.4 68 18 141/54 (83) 90 -: 12/25/16 0705 12/25/16 0705 Microbiology 12/24/16 Urine Culture - Preliminary, Resulted NO GROWTH IN 24 HOURS. Physical Exam General Appearance: No Acute Distress, Comfortable Eyes Eye Exam: Pupils Equal Pulmonary Resp Exam: Breath Sounds Equal, No Distress, Rhonchi, Decreased Bases Cardiology CV Exam: Regular, Normal Sinus Rhythm Gastrointestinal/Abdomen GI Exam: Soft, Non-Tender, Bowel Sounds Present Extremeties Extremities Exam: Trace Edema Neurologic Neuro Exam: Alert, Awake, Oriented Psychiatric Psych Exam: Appropriate Responses Assessment/Plan Assessment Summary: Anemia of CKD, Hypertension, End Stage Renal Disease Problem List: (1) ESRD (end stage renal disease) ICD Codes: N18.6 - End stage renal disease Status: Chronic (2) CAD (coronary artery disease) ICD Codes: I25.10 - Atherosclerotic heart disease of [place] coronary artery without angina pectoris Status: Chronic (3) COPD (chronic obstructive pulmonary disease) ICD Codes: J44.9 - Chronic obstructive pulmonary disease, unspecified Status: Chronic (4) Metabolic encephalopathy ICD Codes: G93.41 - Metabolic encephalopathy (5) Anemia, chronic disease ICD Codes: D63.8 - Anemia in other chronic diseases classified elsewhere Status: Chronic (6) Gallstones ICD Codes: K80.20 - Calculus of gallbladder without cholecystitis without obstruction Status: Chronic Plan Patient has been on HD, Mon., Wed. and Thu. His Encephalopathy is better. Seen by cardiology, need to continue Plavix due to stent. On Epogen for anemia. HD will be in AM. Rosetat Barrett MD Dec 25, 2016 17:21
[2016-12-25] MEDS: TERAZOSIN HCL 1 MG CAP PO SCH (22:05)
[2016-12-26] VITALS: BP_SYST 139; BP_SYST 157; BP_DIAS 57; BP_DIAS 67; PULSE 62; RESP 18; TEMP 97.6; O2SAT 99
[2016-12-26] MEDS: oxyCODONE/ACETAMINOPHEN 5 MG/325 MG TAB PO PRN ×3 (03:43→14:40)
[2016-12-26] MEDS: PIPERACIL-TAZO 2.25 GM PREMIX 50 ML IV SCH ×2 (03:44→14:40)
[2016-12-26] MEDS: HEPARIN SODIUM - SQ 10,000 UNITS/ML VIAL SQ SCH (03:45)
[2016-12-26 06:05] LABS: HEMATOCRIT 29.1 % (39.0-51.0); MEAN CELL VOLUME 90.4 FL (80.0-100.0); MEAN CORPUSCULAR HEMOGLOBIN 27.9 PG (27.0-34.0); MEAN CORPUSCULAR HGB CONC 30.9 % (32.0-36.0); PLATELET COUNT 174 TH/MM3 (150-450); RED BLOOD COUNT 3.22 MIL/MM3 (4.50-5.90); RED CELL DISTRIBUTION WIDTH 18.3 % (11.6-17.2); REVIEW FLAG FINAL; WHITE BLOOD COUNT 3.2 TH/MM3 (4.0-11.0)
[2016-12-26 06:16] LABS: POTASSIUM 3.7 MEQ/L (3.5-5.1)
[2016-12-26 06:22] LABS: BICARBONATE 31.6 MEQ/L (21.0-32.0); MAGNESIUM 2.2 MG/DL (1.5-2.5)
[2016-12-26 08:00] VITALS: BP_SYST 138; BP_SYST 153; BP_SYST 154; BP_DIAS 66; BP_DIAS 67; BP_DIAS 68; PULSE 62; PULSE 63; PULSE 69; RESP 18; TEMP 97; O2SAT 92; O2SAT 96; O2SAT 97
[2016-12-26] MEDS: VITAMIN B CMPLX/VITC/FOLIC AC CAP PO SCH (09:00)
--- NOTE | 2016-12-26 10:17 | HHI.NPPN ---
Subjective History of Present Illness 76-year-old male with past medical history of ischemic heart disease, hypertension, chronic anemia, end-stage renal disease on hemodialysis three times per week, history of chronic obstructive pulmonary disease and recent acute cholecystitis who came to the hospital because of altered mental status. I was called to see the patient for management of dialysis. The patient has been on hemodialysis Thursday, Thursday, Thursday. Additional Remarks Patient is alert, no SOB, no nausea, abd. pain is better, eating well. Review of Systems General Constitutional: Fatigue Cardiovascular Cardiac: ALEX Gastrointestinal Gastrointestinal: Abdominal Pain, Nausea & Vomiting Objective Data Data Vital Signs Date Time Temp Pulse Resp B/P (MAP) Pulse Ox O2 Delivery O2 Flow Rate FiO2 12/26/16 08:00 69 154/68 (96) 97 12/26/16 08:00 63 138/66 (90) 96 12/26/16 08:00 97.0 62 18 153/67 (95) 92 12/26/16 00:00 97.6 62 18 139/57 (84) 99 12/25/16 21:38 94 21 12/25/16 20:00 97.7 63 20 152/68 (96) 94 141/69 (93) 154/67 (96) 12/25/16 16:08 95.6 61 16 152/68 (96) 98 12/25/16 12:00 95.1 65 17 143/58 (86) 96 -: 12/26/16 0523 12/26/16 0523 Physical Exam General Appearance: No Acute Distress, Comfortable Eyes Eye Exam: Pupils Equal Pulmonary Resp Exam: Breath Sounds Equal, No Distress, Rhonchi, Decreased Bases Cardiology CV Exam: Regular, Normal Sinus Rhythm Gastrointestinal/Abdomen GI Exam: Soft, Non-Tender, Bowel Sounds Present Extremeties Extremities Exam: Trace Edema Neurologic Neuro Exam: Alert, Awake, Oriented Psychiatric Psych Exam: Appropriate Responses Assessment/Plan Assessment Summary: Anemia of CKD, Hypertension, End Stage Renal Disease Problem List: (1) ESRD (end stage renal disease) ICD Codes: N18.6 - End stage renal disease Status: Chronic (2) CAD (coronary artery disease) ICD Codes: I25.10 - Atherosclerotic heart disease of [place] coronary artery without angina pectoris Status: Chronic (3) COPD (chronic obstructive pulmonary disease) ICD Codes: J44.9 - Chronic obstructive pulmonary disease, unspecified Status: Chronic (4) Metabolic encephalopathy ICD Codes: G93.41 - Metabolic encephalopathy (5) Anemia, chronic disease ICD Codes: D63.8 - Anemia in other chronic diseases classified elsewhere Status: Chronic (6) Gallstones ICD Codes: K80.20 - Calculus of gallbladder without cholecystitis without obstruction Status: Chronic Plan Patient has been on HD, Mon., Wed. and Fri. His Encephalopathy is better. Seen by cardiology, need to continue Plavix due to stent. On Epogen for anemia. WBC is low, Hgb. and platelets stable. MRI of C-Spine and MRA neck seen. HD will be again today. Roestta Barrett MD Dec 26, 2016 10:17
[2016-12-26] MEDS: PRAVASTATIN SOD 40 MG TAB PO SCH (10:21)
[2016-12-26] MEDS: SENNOSIDES 8.6 MG TAB PO SCH (10:21)
[2016-12-26] MEDS: DOCUSATE SODIUM 100 MG CAP PO SCH (10:21)
[2016-12-26] MEDS: amLODIPine BESYLATE 5 MG TAB PO SCH (10:22)
[2016-12-26] MEDS: CLOPIDOGREL 75 MG TAB PO SCH (10:23)
[2016-12-26] MEDS: ASPIRIN EC 81 MG TABEC PO SCH (10:23)
[2016-12-26] MEDS: NYSTATIN SUSP 500,000 U/5 ML CUP SWISH-SWAL SCH ×2 (10:23→14:39)
[2016-12-26] MEDS: SODIUM CHLORIDE 0.9% FLUSH 10 ML FLUSH IV FLUSH SCH (10:23)
[2016-12-26] MEDS: EPOETIN ALFA 10,000 UNITS/ML VIAL IV PUSH PRN (11:43)
[2016-12-26] MEDS ORDERED: OXYC1TAB63 PO (14:56)
[2016-12-26] MEDS ORDERED: LEVA750T9 PO (14:57)
[2016-12-26] MEDS ORDERED: DIAZ2 PO (14:57)
[2016-12-26] MEDS ORDERED: BUME2TAB PO ×2 (14:57)
[2016-12-26] MEDS ORDERED: LEVA500T20 PO (14:57)
--- NOTE | 2016-12-26 15:04 | HHI.DS ---
Discharge Summary Admission Date Dec 22, 2016 at 16:20 Discharge Date: Dec 26, 2016 Admitting Diagnosis delirium (1) Metabolic encephalopathy ICD Code: G93.41 - Metabolic encephalopathy Diagnosis: Principal (2) ESRD (end stage renal disease) ICD Code: N18.6 - End stage renal disease Diagnosis: Principal Status: Chronic (3) CAD (coronary artery disease) ICD Code: I25.10 - Atherosclerotic heart disease of [place] coronary artery without angina pectoris Status: Chronic (4) COPD (chronic obstructive pulmonary disease) ICD Code: J44.9 - Chronic obstructive pulmonary disease, unspecified Status: Chronic (5) Cholecystitis ICD Code: K81.9 - Cholecystitis, unspecified Diagnosis: Principal Procedures None Brief History - From Admission Patient is a 76-year-old gentleman with a history of end-stage renal disease and coronary artery disease who has had 3 months of worsening confusion and this has been worse over the last 2 weeks per his spouse who accompanies him to the emergency room. Over the last 24 hours patient has become angry and agitated with increased hallucinations. The patient did come to the emergency room for further evaluation with his . He isn't paranoid and falling. He has been no fever or chills and no nausea. Patient does report that he has increasing abdominal pain in the right upper quadrant as well as radiating to the back. The pain is moderate to severe. They spouse says that he did have cardiac stents done in June around the same time he was diagnosed with gallstone which were in need of a cholecystectomy however because he was placed on the blood thinner this was delayed. Patient now reports difficulty eating and pain worse with eating in the right upper quadrant. LFTs are unremarkable. CT of the head is unremarkable. On my review EKG does show sinus rhythm without ischemic changes and a chest x-ray on my review shows no acute cardio pulmonary pathology CBC/BMP: 12/26/16 0523 12/26/16 0523 Significant Findings Laboratory Tests Test 12/24/16 10:10 12/24/16 19:30 12/24/16 22:00 12/25/16 07:05 White Blood Count 3.7 TH/MM3 (4.0-11.0) 3.1 TH/MM3 (4.0-11.0) Red Blood Count 3.03 MIL/MM3 (4.50-5.90) 3.19 MIL/MM3 (4.50-5.90) Hemoglobin 9.1 GM/DL (13.0-17.0) 9.2 GM/DL (13.0-17.0) Hematocrit 27.4 % (39.0-51.0) 28.8 % (39.0-51.0) Red Cell Distribution Width 18.2 % (11.6-17.2) 18.5 % (11.6-17.2) Monocytes (%) (Auto) 12.1 % (0.0-8.0) Eosinophils (%) (Auto) 7.2 % (0.0-4.0) Lymphocytes # (Auto) 0.4 TH/MM3 (1.0-4.8) Blood Urea Nitrogen 47 MG/DL (7-18) 31 MG/DL (7-18) Creatinine 6.30 MG/DL (0.60-1.30) 5.10 MG/DL (0.60-1.30) Random Glucose 130 MG/DL (74-106) Estimat Glomerular Filtration Rate 9 ML/MIN (>89) 11 ML/MIN (>89) Vitamin B12 Level 1378 PG/ML (193-986) Urine Protein 100 mg/dL (NEG-TRACE) Urine WBC 9-14 /hpf (0-5) Urine WBC Clumps FEW (NONE) Urine Mucus FEW /lpf (OCC) Carbon Dioxide Level 33.8 MEQ/L (21.0-32.0) Test 12/26/16 05:23 White Blood Count 3.2 TH/MM3 (4.0-11.0) Red Blood Count 3.22 MIL/MM3 (4.50-5.90) Hemoglobin 9.0 GM/DL (13.0-17.0) Hematocrit 29.1 % (39.0-51.0) Mean Corpuscular Hemoglobin Concent 30.9 % (32.0-36.0) Red Cell Distribution Width 18.3 % (11.6-17.2) Blood Urea Nitrogen 35 MG/DL (7-18) Creatinine 6.30 MG/DL (0.60-1.30) Estimat Glomerular Filtration Rate 9 ML/MIN (>89) Imaging Last Impressions Neck Magnetic Resonance Angiography 12/25/16 Signed Impressions: Service Date/Time: November 10:50 - CONCLUSION: 1. Limited examination due to the [id number]-me-bgyjys technique. 2. 3. Right carotid: 4. Atherosclerotic plaquing at the bifurcation with stenosis measured at 60%% by NASCET criteria. 5. 6. Left carotid: 7. Atherosclerotic plaquing at the bifurcation with stenosis measured at approximately 60%% by NASCET criteria. Anthony Macias MD Cervical Spine MRI 12/25/16 Signed Impressions: Service Date/Time: November 10:50 - CONCLUSION: 1. Multilevel cervical spine degenerative changes as above. 2. Mild to moderate degrees of spinal stenosis. There is borderline cord compression at C5/C6. No cord signal abnormality. 3. Moderate to severe right foraminal stenosis at C5/C6. Otherwise generally mild degrees of foraminal stenosis. 4. Reactive appearing endplate marrow edema at C5/C6, C6/C7 and C7/T1. Also grade 1 degenerative appearing anterolisthesis at C4/C5 and C5/C6. No fracture or acute appearing malalignment of the cervical spine. Caleb Cartagena MD Carotid Artery Ultrasound 12/24/16 Signed Impressions: Service Date/Time: Saturday, December 24, 2016 10:52 - CONCLUSION: 1. Heavily calcified atherosclerotic plaque generating a greater than 69%% stenosis of the left ICA and 50-69%% stenosis of the right ICA. Consider CTA of the carotids to further evaluate. 2. Antegrade flow involving both vertebral arteries. Ashish Davis Jr., MD Hip and Pelvis X-Ray 12/23/16 Signed Impressions: Service Date/Time: Friday, December 23, 2016 13:49 - CONCLUSION: Diffuse osteopenia. No fracture seen. Ashish Meade MD Head CT 12/22/16 1457 Signed Impressions: Service Date/Time: Thursday, December 22, 2016 15:33 - CONCLUSION: No acute disease. Ashish Davis Jr., MD Gall Bladder Ultrasound 12/22/16 Signed Impressions: Service Date/Time: Thursday, December 22, 2016 18:07 - CONCLUSION: Gallstone with mild diffuse gallbladder wall thickening. Chronic kidney disease Caleb Diego MD PE at Discharge GENERAL: Well-developed gentleman in NAD. SKIN: No rashes, ecchymoses or lesions. Cool and dry. HEAD: Atraumatic. Normocephalic. No temporal or scalp tenderness. EYES: Pupils equal round and reactive. Extraocular motions intact. No scleral icterus. No injection or drainage. ENT: Nose without bleeding, purulent drainage or septal hematoma. Throat without erythema, tonsillar hypertrophy or exudate. Uvula midline. Airway patent. NECK: Trachea midline. No JVD or lymphadenopathy. Supple, nontender, no meningeal signs. CARDIOVASCULAR: Regular rate and rhythm without gallops or rubs, systolic murmur RESPIRATORY: Mild crackles at the bases. GASTROINTESTINAL: Abdomen soft, non-tender, nondistended. No hepato-splenomegaly , or palpable masses. No guarding. MUSCULOSKELETAL: Left upper extremity fistula, extremities without clubbing, cyanosis, or edema. Right hip tender to palpation. NEUROLOGICAL: Awake and alert. Cranial nerves II through XII intact. Motor and sensory grossly within normal limits. Five out of 5 muscle strength in all muscle groups. Nonsensical speech. PSYCH: Mood and affect appropriate. Pt update on day of discharge The patient was seen following dialysis. He was anxious to go home. He had no acute complaints. Discussed with nursing, neurology, surgery and nephrology. Hospital Course Cholecystitis GB US with wall thickening. Surgery was consulted. Unable to proceed with surgery as had a recent stent placement. The pt will schedule cholecystectomy once cleared by cardiology after patient can be taken off from aspirin and Plavix. He received pain control and antiemetics as needed. Zosyn will be switched to Levaquin upon discharge. His diet was advanced. Metabolic encephalopathy Has been falling down at home. Not found to be orthostatic. Neurology was consulted. MRI of cervical spine showed: Multilevel cervical spine degenerative changes; Mild to moderate degrees of spinal stenosis; There is borderline cord compression at C5/C6; No cord signal abnormality; Moderate to severe right foraminal stenosis at C5/C6; Reactive appearing endplate marrow edema at C5/C6, C6/C7 and C7/T1; Also grade 1 degenerative appearing anterolisthesis at C4/C5 and C5/C6; No fracture or acute appearing malalignment of the cervical spine. MRA of carotids with 60% stenoses. Echo with EF of 50-55% . Neurology was consulted. Held sedating meds. Placed on neuro checks. He was monitored on telemetry. He worked with PT/ OT. Case management arranged for [facility]. He will follow up with neurology as an outpt. End stage renal disease Nephrology was consulted. He was continued on hemodialysis Thursday/Thursday/ Thursday. He will continue Bumex on non dialysis days. He will follow up with nephrology. CAD (coronary artery disease) Trops elevated at 0.07. Patient on Plavix, aspirin. Cardiology was consulted. He will follow-up as an outpt. Pt Condition on Discharge: Stable Discharge Disposition: Disch w/ Home Health Serv Discharge Time: > 30 minutes Discharge Instructions DIET: Follow Instructions for: Renal Failure Diet Activities you can perform: Weight Bearing as Delia Follow up Referrals: Nephrology - 1 Week Neurology - 1 Week with Caitlyn Mcelroy MD PCP Follow-up - 1 Week Surgical with Ulises Denis MD New Medications: Levofloxacin (Levaquin) 750 Mg Tablet 750 MG PO ONCE for Infection for 1 Day, TAB 0 Refills Take dose AM 12/27 Levofloxacin (Levaquin) 500 Mg Tablet 500 MG PO EVERY OTHER DAY for Infection, #3 TAB 0 Refills Take first dose AM 12/28 Diazepam (Valium) 2 Mg Tab 2 MG PO HS PRN for Anxiety, #7 TAB Changed Medications: Bumetanide (Bumetanide) 2 Mg Tab 4 MG PO DAILY for Fluid, #1 TAB 0 Refills (Medication details modified) Take on days you do not receive dialysis Bumetanide (Bumetanide) 2 Mg Tab 2 MG PO HS for Fluid, #1 TAB 0 Refills (Medication details modified) Take on days you do not receive dialysis Continued Medications: Amlodipine (Amlodipine) 5 Mg Tab 5 MG PO DAILY for Blood Pressure Management, #30 TAB [address] (Aspirin EC) 81 Mg Tabdr 81 MG PO DAILY, TAB 0 Refills B-Complex W/ C & Folic Acid (Nephro-[place]) 1 Tab 1 TAB PO DAILY for Nutritional Supplement, #30 TAB 0 Refills Clopidogrel (Clopidogrel) 75 Mg Tab 75 MG PO DAILY for Blood Clot Prevention, #30 TAB 0 Refills Oxycodone-Acetaminophen (Oxycodone-Acetaminophen) 5-325 mg Tab 1-2 TAB PO Q4H PRN for PAIN, #10 TAB 0 Refills (This prescription has been renewed) Pilocarpine (Pilocarpine) 5 Mg Tab 5 MG PO Q8HR for Dry Mouth, #90 TAB 0 Refills Simvastatin (Simvastatin) 80 Mg Tab 80 MG PO DAILY for Cholesterol Management, #30 TAB 0 Refills Terazosin (Terazosin) 1 Mg Cap 1 MG PO HS, #30 CAP 0 Refills Discontinued Medications: Diazepam (Diazepam) 10 Mg Tab 10 MG PO HS, TAB 0 Refills Gabapentin (Gabapentin) 600 Mg Tab 600 MG PO BID, #60 TAB 0 Refills Vinny Pedersen DO Dec 26, 2016 15:04
--- NOTE | 2016-12-26 15:43 | HHI.FF ---
Face to Face Verification Diagnosis: (1) Cholecystitis (2) Falls (3) Gallstones (4) Anemia, chronic disease (5) ESRD (end stage renal disease) (6) Metabolic encephalopathy Physical Therapy Order: Evaluate and Treat, Improve ambulation, Strength and gait training Occupational Therapy Order: Evaluate and Treat, Improve ADL, Gross motor coordination, Fine motor coordination Speech Therapy Order: To Improve: Speech and communication skills, Cognitive skills, Swallowing Home Health Nursing Order: Medical education Signs/symptoms of disease process Medication education-adverse effect Nursing assessment with vital signs I have seen patient Manolo Scott on 12/26/16. My clinical findings support the need for the requested home health care services because: Ltd mobility - disease progression Deconditioned w/ increased weakness Med compliance is questionable Limited ability to care for self Need for psychosocial assistance High risk of falls I certify that my clinical findings support that this patient is homebound because: Impaired cognitive ability/safety Unsteady gait/balance Unsafe to leave home unassisted Need for psychosocial assistance Vinny Pedersen DO Dec 26, 2016 15:43
[2016-12-26 16:00] VITALS: BP 133/62; PULSE 60; RESP 20; TEMP 97.4; O2SAT 99
== END 2016-12-26 17:38 | disposition home or self-care (01) ==
LOC: PHED 14:19 → PHEDA 16:20 → PH3B 17:59
PROVIDERS: ADMIT Hospitalist; ATTEND Hospitalist
DX: G93.41 Metabolic encephalopathy (principal); N18.6 End stage renal disease; I25.10 Atherosclerotic heart disease of native coronary artery without angina pectoris; J44.9 Chronic obstructive pulmonary disease, unspecified; R29.6 Repeated falls; Z79.01 Long term (current) use of anticoagulants; Z85.118 Personal history of other malignant neoplasm of bronchus and lung; E78.00 Pure hypercholesterolemia, unspecified; I12.0 Hypertensive chronic kidney disease with stage 5 chronic kidney disease or end stage renal disease; Z86.73 Personal history of transient ischemic attack (TIA), and cerebral infarction without residual deficits; Z99.2 Dependence on renal dialysis; K44.9 Diaphragmatic hernia without obstruction or gangrene; F41.9 Anxiety disorder, unspecified; Z95.1 Presence of aortocoronary bypass graft; Z79.899 Other long term (current) drug therapy; R44.3 Hallucinations, unspecified; Z95.5 Presence of coronary angioplasty implant and graft; K80.10 Calculus of gallbladder with chronic cholecystitis without obstruction; D63.1 Anemia in chronic kidney disease; Z87.891 Personal history of nicotine dependence; I65.22 Occlusion and stenosis of left carotid artery; I45.10 Unspecified right bundle-branch block; R94.31 Abnormal electrocardiogram [ECG] [EKG]
CPT/HCPCS: 70450; 70547; 72141; 73503; 76705; 80048; 80053; 80307; 81001; 82140; 82550; 82607; 83735; 84443; 84484; 85025; 85027; 85610; 85730; 86592; 87040; 87086; 90935; 93005; 93306; 93880; 96365; 96366; 96372; 96374; 97110; 97116; 97162; 97167; 99285; G0257; G0378; G8987; G8988; J1644; J2543; Q4081